=== PATIENT | female | born 1985 | race Caucasian/White ===

== ENCOUNTER → 2016-11-03 | Outpatient (CLI) | payer BC ==
[~2016-11-03] MED LIST: AMT10 PO; ETONMIS VAGRING; GABA-112 PO; METH500T37 PO; NYSTCRE32 TOP; ONDA4TAB4 PO; OXYC-57 PO; SUMA25TA PO; ZNTT/150 PO
== END | disposition home or self-care (01) ==
LOC: C.PAPS 10:50
PROVIDERS: ATTEND Obstetrics & Gynecology
DX: Z01.411 Encounter for gynecological examination (general) (routine) with abnormal findings (principal); R87.616 Satisfactory cervical smear but lacking transformation zone; Z87.42 Personal history of other diseases of the female genital tract

== ENCOUNTER 2017-02-21 14:48 | Emergency (ER) | payer BC ==
[~2017-02-21] VITALS: Ht 152.4 cm; Wt 100.0 kg
[~2017-02-21 14:48] MED LIST changes: -GABA-112 PO; -OXYC-57 PO
[2017-02-21 15:03] VITALS: TEMP 36.9; Ht 152.4 cm; Wt 100.0 kg
[2017-02-21] MEDS ORDERED: OXYCODONE/ACETAMINOPHEN 5-325 TAB PO STA (15:38)
[2017-02-21] MEDS ORDERED: GABA-112 PO (15:42)
--- NOTE | 2017-02-21 16:12 | DIAGNOSTIC IMAGING REPORT ---
PELVIS/UNILATERAL HIP 1 VIEW CLINICAL HISTORY: AP PELVIS, RIGHT HIP PAIN COMPARISON: None. DISCUSSION: The bones and joint spaces appear intact. There is no evidence of fracture, dislocation or bony disease. There is no evidence for soft tissue swelling. IMPRESSION: Negative study. The above report was generated using voice recognition software. It may contain grammatical, syntax or spelling errors. Electronically signed by: Moi Zambrnao M.D. 02/21/2017 4:10 PM Dictated Date/Time: 02/21/2017 4:09 PM
--- NOTE | 2017-02-21 16:13 | DIAGNOSTIC IMAGING REPORT ---
L-SPINE MIN 4 VIEWS ROUTINE HISTORY: Pain. Neuropathy. RIGHT HIP Pin, numbness/tingling right leg COMPARISON: None. FINDINGS: There is no fracture. No subluxation. Disc spaces are preserved. IMPRESSION: No fracture or subluxation within the lumbar spine. The above report was generated using voice recognition software. It may contain grammatical, syntax or spelling errors. Electronically signed by: Moi Zambrano M.D. 02/21/2017 4:11 PM Dictated Date/Time: 02/21/2017 4:10 PM
[2017-02-21] MEDS ORDERED: OXYC-57 PO (16:24)
--- NOTE | 2017-02-21 16:25 | EMERGENCY ROOM VISIT NOTE ---
ED Visit Note First contact with patient: 15:08 CHIEF COMPLAINT: Right hip pain radiating down the right leg since last evening HISTORY OF PRESENT ILLNESS: Patient is a 32-year-old white female who presents emergency department for evaluation of right hip pain. She states that her pain began acutely last evening. She was sleeping in a chair, and states that she moved/stretched, and fell acute onset of pain in the right hip. She went back to sleep. She states that when she woke up later and tried to get out of the chair and into bed, and she could not walk due to pain. She complains complains of pain in the anterior aspect of the right hip/groin, wrapping around to her buttocks, and down through her thigh, on occasion when it is more severe it radiates down to her heel. She also reports feeling a pins and needle sensation in the lateral aspect of the right leg. She describes her pain as throbbing in nature and rates it an 8/10. She tried taking ibuprofen without relief. She denies any fall or direct trauma to the area, no unusual activity prior to the onset of her pain. She does have a history of bilateral hip arthroscopy, the right hip was performed in April 2014. She does have crutches at home that she did not use them. She has an appointment with orthopedics tomorrow but due to her pain level did not feel that she could wait to be seen. She denies any symptoms in the left leg. She does have a history of back problems, but states that this pain feels more consistent with her prior hip disease. She denies any leg weakness. No saddle anesthesias. No bowel incontinence, she does report some element of chronic urinary incontinence which is normal for her. REVIEW OF SYSTEMS: Review of systems as per HPI. All other systems reviewed were negative. 10 systems reviewed. PMH: Electronic medical records are reviewed and summarized as above/below. See Problem List. SOCIAL HISTORY: Patient lives at home with her and son. She does not smoke. She is employed as a medical secretary receptionist. PHYSICAL EXAM: Vital Signs: Reviewed Nurse's notes. CONSTITUTIONAL: Patient is an obese 32 year-old white female who is awake and alert and in moderate distress due to her hip pain. There is significant discomfort with position changes. INTEGUMENTARY: No lesions or rash, normal skin turgor. LYMPH: No lymphadenopathy. SPINE: Examination of the patient's back does not demonstrate any ecchymosis, abrasions or outward signs of trauma. No erythema, increased warmth or induration. Patient has no discomfort to palpation over the lumbar spine, she does have some discomfort in the right SI joint and in the sciatic notch. EXTREMITIES: Leg lengths are symmetrical. Negative logroll bilaterally. Normal strength including dorsi-flexion and plantar flexion of the great toes and ankles and flexion and extension of the knees and flexion of the hips. The patient has pain with any right hip range of motion including flexion and internal and external rotation. Left hip is nontender. Straight leg raise testing does not elicit any radicular symptoms. Lower extremity DTRs are equal and symmetrical bilaterally. Distal pulses are easily palpable. Sensation light touch is intact over the lower extremities bilaterally. EMERGENCY DEPARTMENT COURSE: Patient was given 2 Percocet tablets orally. Lumbar spine and AP pelvis and right hip x-rays were obtained, and all were unremarkable. The patient feels that her pain is related to her hip, and is concerned she could have reaggravated her prior injury for which she underwent arthroscopic surgery several years ago. She is scheduled to see orthopedics tomorrow. She has crutches at home and was encouraged to use them . She was given a small perception for Percocet to use until she can be seen by orthopedics. Differential diagnoses entertained included bursitis, sprain, lumbar radiculopathy, among others. The patient was discharged home with her driving. She rated her pain a 5/10 at discharge. Medication reconciliation: I attest that I have personally reviewed the patient' s current medication list. Patient was reviewed in the [facility] Prescription Drug Monitoring Program, and there were no red flags noted. Blood pressure screening : Patient was found to have normal blood pressure on screening and does not require follow-up. L-SPINE MIN 4 VIEWS ROUTINE HISTORY: Pain. Neuropathy. RIGHT HIP Pin, numbness/tingling right leg COMPARISON: None. FINDINGS: There is no fracture. No subluxation. Disc spaces are preserved. IMPRESSION: No fracture or subluxation within the lumbar spine. PELVIS/UNILATERAL HIP 1 VIEW CLINICAL HISTORY: AP PELVIS, RIGHT HIP PAIN COMPARISON: None. DISCUSSION: The bones and joint spaces appear intact. There is no evidence of fracture, dislocation or bony disease. There is no evidence for soft tissue swelling. IMPRESSION: Negative study. 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 (3) Esophageal Reflux Status: Chronic (4) Gestational diabetes mellitus in childbirth, diet controlled Status: Resolved (5) Normal labor Status: Resolved Surgical Problems: (1) History of carpal tunnel release Status: Resolved (2) History of tonsillectomy Status: Resolved (3) History of wisdom tooth extraction Status: Resolved (4) Status post arthroscopy of hip Status: Resolved Current/Historical Medications Scheduled Etonogestrel/Ethinyl Estradiol (Nuvaring), 1 EA VAGRING MONTHLY Gabapentin (Neurontin), 200 MG PO HS Ranitidine (Zantac), 150 MG PO DAILY Scheduled PRN Methocarbamol (Robaxin), 500 MG PO TID PRN for Pain Ondansetron Tab (Zofran), 4 MG PO TID PRN for Nausea Oxycodone/Acetaminophen 5MG/325MG (Percocet 5MG/325MG), 1-2 TABS PO Q4 PRN for Pain Sumatriptan Succinate (Imitrex), 25 MG PO PRN PRN for Migraine Allergies Coded Allergies: Adhesives (Verified Allergy, Unknown, RASH, 02/21/17) Ketoconazole (Unverified Allergy, Unknown, RASH, 02/21/17) Vital Signs Date Time Temp Pulse Resp B/P (MAP) Pulse Ox O2 Delivery O2 Flow Rate FiO2 02/21/17 16:39 90 18 128/88 97 Room Air 02/21/17 15:03 36.9 90 18 127/84 97 Medications Administered Medications (Trade) Dose Ordered Sig/Elizabeth Route Start Time Stop Time Status Last Admin Dose Admin Oxycodone/ Acetaminophen (Percocet 5-325mg Tab) 2 tab NOW STAT PO 02/21/17 15:38 02/21/17 15:40 DC 02/21/17 15:47 2 TAB Departure Information Impression Primary Impression: Right hip pain Additional Impression: Right leg paresthesias Prescriptions Oxycodone/Acetaminophen 5MG/325MG (PERCOCET 5MG/325MG) Tab 1-2 TABS PO Q4 Y for Pain, #20 TAB For Initial Treatment Prov: Gaby Quach PA 02/21/17 Referrals Slim Reed M.D. (PCP) Patient Instructions My [facility] Additional Instructions DO NOT drive, drink alcohol, operate machinery, or perform dangerous activities today. You were given medications in the ER that can affect your ability to safely function or operate a vehicle. Percocet 5/325 mg : Take 1-2 pills every four hours for breakthrough pain. Avoid alcohol, operating machinery or dangerous equipment, working on ladders or roofs, DRIVING, or situations where being under the influence may be dangerous. It is recommended to use an kfle-guw-tqmniaw stool softener such as Colace, 100mg twice daily while taking this medication to avoid constipation. Ibuprofen(Motrin, Advil) may be used for fever or pain. Use 600mg every six hours as needed. Take with food. Avoid using more than 2400mg in a 24 hour period. Do not use 2400mg per day for more than three consecutive days without physician direction. Prolonged inappropriate use can lead to stomach upset or ulcers. This medication can be taken if you need to drive, work, or perform activities which may be dangerous when taking narcotic pain medication. Ice compresses for 20 minutes at a time four times daily for 2-3 days. Use the crutches as instructed. Rest and elevate your injury. Continue current medications. Follow-up with orthopedics as you have scheduled tomorrow. Problem Qualifiers
[2017-02-21 16:39] VITALS: BP 128/88; PULSE 90; O2SAT 97
== END 2017-02-21 16:41 | disposition home or self-care (01) ==
LOC: C.EDB 14:49 → C.EDD 16:41
DX: M25.551 Pain in right hip (principal); R20.2 Paresthesia of skin; R32 Unspecified urinary incontinence; E66.9 Obesity, unspecified; Z68.41 Body mass index [BMI] 40.0-44.9, adult; G62.9 Polyneuropathy, unspecified; F41.9 Anxiety disorder, unspecified; Q79.6 Ehlers-Danlos syndromes; K21.9 Gastro-esophageal reflux disease without esophagitis; Z79.3 Long term (current) use of hormonal contraceptives; Z79.899 Other long term (current) drug therapy

== ENCOUNTER → 2017-04-27 | Outpatient (CLI) | payer BC ==
[~2017-04-27] MED LIST changes: -AMT10 PO; +GABA-112 PO; -NYSTCRE32 TOP; +OXYC-57 PO
--- NOTE | 2017-04-27 15:57 | DIAGNOSTIC IMAGING REPORT ---
MRI LUMBAR SPINE W/O CONTRAST CLINICAL HISTORY: RADICULOPATHY TECHNIQUE: Sagittal and axial T1, T2 and STIR images were obtained. COMPARISON STUDY: 06/11/2015 OBSERVATIONS: The vertebral bodies and posterior elements appear intact. There is no abnormal bony signal present to suggest a marrow replacement process. L1-2: No disc protrusions or extrusions. No evidence of spinal canal or neural foraminal compromise. L2-3: No disc protrusions or extrusions. No evidence of spinal canal or neural foraminal compromise. L3-4: There is disc desiccation. There is no focal herniation. There is no spinal or foraminal stenosis. L4-5: No disc protrusions or extrusions. No evidence of spinal canal or neural foraminal compromise. L5-S1: No disc protrusions or extrusions. No evidence of spinal canal or neural foraminal compromise. The conus medullaris and cauda equina appear normal. IMPRESSION: Early disc desiccation at the L3-4 level. Otherwise normal examination. No disc herniations identified. No evidence of spinal or foraminal stenosis. Electronically signed by: Himanshu Valdez M.D. 04/27/2017 3:56 PM Dictated Date/Time: 04/27/2017 3:53 PM
== END | disposition home or self-care (01) ==
LOC: C.MRIBC 14:42
PROVIDERS: ATTEND Physical Medicine & Rehabilitation Sports Medicine
DX: M54.17 Radiculopathy, lumbosacral region (principal); M25.851 Other specified joint disorders, right hip

== ENCOUNTER 2017-08-13 22:27 | Emergency (ER) | payer BC, OTHER ==
[~2017-08-13] VITALS: Ht 152.4 cm; Wt 103.6 kg
[2017-08-13 22:40] VITALS: Ht 152.4 cm; Wt 103.6 kg
[2017-08-13] MEDS ORDERED: GABA-113 PO (23:10)
[2017-08-13] MEDS ORDERED: ACETAMINOPHEN 500 MG TAB PO STA (23:27)
[2017-08-13] MEDS ORDERED: KETOROLAC TROMETHAMINE 30 MG/ML VIAL IV STA (23:27)
[2017-08-13] MEDS ORDERED: ONDANSETRON INJ 2 MG/ML 2 ML VIAL IV STA (23:27)
[2017-08-13] MEDS ORDERED: SODIUM CHLORIDE 0.9% 1000ML 1,000 ML IV STA (23:27)
[2017-08-13 23:37] LABS: BASO % 0.4 %; BASO ABS # 0.03 K/uL (0-0.2); EOS % 0.3 %; EOS ABS # 0.02 K/uL (0-0.5); HEMATOCRIT 38.1 % (37-47); HEMOGLOBIN 13.1 g/dL (12.0-16.0); IG# 0.02 K/uL (0.00-0.02); LYMPH ABS # 0.35 K/uL (1.2-3.4); MEAN CELL VOLUME 91.1 fL (80-100); MEAN CORPUSCULAR HEMOGLOBIN 31.3 pg (25-34); MEAN CORPUSCULAR HGB CONC 34.4 g/dl (32-36); MEAN PLATELET VOLUME 10.3 fL (7.4-10.4); MONO % 7.9 %; MONO ABS # 0.56 K/uL (0.11-0.59); NEUT % 86.1 %; NEUT ABS # 6.09 K/uL (1.4-6.5); PLATELET COUNT 224 K/uL (130-400); RED CELL DISTRIBUTION WIDTH CV 13.1 % (11.5-14.5); RED CELL DISTRIBUTION WIDTH SD 43.3 fL (36.4-46.3); WHITE BLOOD COUNT 7.07 K/uL (4.8-10.8)
[2017-08-13 23:51] LABS: ALBUMIN 3.3 gm/dl (3.4-5.0); CALCIUM 9.5 mg/dl (8.5-10.1); TOTAL PROTEIN 7.8 gm/dl (6.4-8.2)
[2017-08-13 23:54] LABS: INFLUENZA B ANTIGEN Neg for Influ B (NEG)
[2017-08-14 00:49] VITALS: TEMP 37.4
[2017-08-14] MEDS ORDERED: SODIUM CHLORIDE 0.9% 1000ML 1,000 ML IV STA (00:49)
[2017-08-14] MEDS ORDERED: OSELTAMIVIR PHOSPHATE 75 MG CAP PO STA (01:33)
[2017-08-14] MEDS ORDERED: ONDANSETRON INJ 2 MG/ML 2 ML VIAL IV STA (01:33)
--- NOTE | 2017-08-14 01:43 | EMERGENCY ROOM VISIT NOTE ---
History First contact with patient: 22:55 Chief Complaint: FLU LIKE SX Stated Complaint: FEVER, VOMITING BLOOD,COUGHING,ACHE ALL OVER History of Present Illness The patient is a 32 year old female who presents to the Emergency Room with complaints of flulike symptoms which started yesterday evening and worsened throughout the day today. The patient reports that she has had body aches, nausea/vomiting, cough, headache, sore throat and fever. She rates her overall discomfort an 8/10. She has been taking Advil and NyQuil without relief. She reports fevers up to 103.2F. She does state that she had one episode of vomiting which was streaked with a small amount of dark material appearing to be blood. She states that one of her children was recently ill with croup, otherwise she denies any ill contacts. She denies neck stiffness, diarrhea, abdominal pain, chest pain or shortness of breath. Review of Systems A complete 10 point review of systems was reviewed with the patient with pertinent positives and negatives as per history of present illness. All else were negative. Past Medical/Surgical History Medical Problems: (1) Anxiety State Nos (2) Maurisio-Danlos syndrome type III (3) Esophageal Reflux (4) Gestational diabetes mellitus in childbirth, diet controlled (5) Normal labor Surgical Problems: (1) History of carpal tunnel release (2) History of tonsillectomy (3) History of wisdom tooth extraction (4) Status post arthroscopy of hip Social History Smoking Status: Never Smoker Alcohol Use: occasionally Marital Status: single Occupation Status: employed Current/Historical Medications Scheduled Etonogestrel/Ethinyl Estradiol (Nuvaring), 1 EA VAGRING MONTHLY Gabapentin (Neurontin), 300 MG PO TID Ondasetron Odt (Zofran Odt), 4 MG SL Q6H Oseltamivir (Tamiflu), 75 MG PO BID Ranitidine (Zantac), 150 MG PO DAILY Scheduled PRN Sumatriptan Succinate (Imitrex), 25 MG PO PRN PRN for Migraine Physical Exam Vital Signs Date Time Temp Pulse Resp B/P (MAP) Pulse Ox O2 Delivery O2 Flow Rate FiO2 08/14/17 02:12 89 18 131/64 96 Room Air 08/14/17 00:49 37.4 101 18 99/60 96 Room Air 08/13/17 22:40 39.4 104 18 143/76 93 Room Air Physical Exam VITALS: Vitals are noted on the nurse's note and reviewed by myself. Vital signs stable. GENERAL: This is a 32-year-old female, in no acute distress, nondiaphoretic, well-developed well-nourished. SKIN: The skin was without rashes. HEAD: Normocephalic atraumatic. EARS: External auditory canals clear, tympanic membranes pearly carias without erythema or effusion bilaterally. EYES: Pupils equal round and reactive to light and accommodation. MOUTH: Mucous membranes moist. Tonsils are not enlarged. Pharynx minimally erythematous. NECK: Supple without nuchal rigidity. No lymphadenopathy. HEART: Regular rate and rhythm without murmurs gallops or rubs. LUNGS: Clear to auscultation bilaterally without wheezes, rales or rhonchi. No retractions or accessory muscle use. ABDOMEN: Positive bowel sounds x 4. Soft, nontender to palpation. NEURO: Patient was alert and oriented to person place and time. Medical Decision & Procedures ER Provider Diagnostic Interpretation: CHEST 1 VIEW: No infiltrates, no acute cardiopulmonary abnormalities. Laboratory Results 08/13/17 23:15 Red Blood Count 4.18, Mean Corpuscular Volume 91.1, Mean Corpuscular Hemoglobin 31.3, Mean Corpuscular Hemoglobin Concent 34.4, Mean Platelet Volume 10.3, Neutrophils (%) (Auto) 86.1, Lymphocytes (%) (Auto) 5.0, Monocytes (%) (Auto) 7.9, Eosinophils (%) (Auto) 0.3, Basophils (%) (Auto) 0.4, Neutrophils # (Auto) 6.09, Lymphocytes # (Auto) 0.35, Monocytes # (Auto) 0.56, Eosinophils # (Auto) 0.02, Basophils # (Auto) 0.03 08/13/17 23:15 Test 08/13/17 23:15 White Blood Count 7.07 K/uL (4.8-10.8) Red Blood Count 4.18 M/uL (4.2-5.4) Hemoglobin 13.1 g/dL (12.0-16.0) Hematocrit 38.1 % (37-47) Mean Corpuscular Volume 91.1 fL (80-100) Mean Corpuscular Hemoglobin 31.3 pg (25-34) Mean Corpuscular Hemoglobin Concent 34.4 g/dl (32-36) Platelet Count 224 K/uL (130-400) Mean Platelet Volume 10.3 fL (7.4-10.4) Neutrophils (%) (Auto) 86.1 % Lymphocytes (%) (Auto) 5.0 % Monocytes (%) (Auto) 7.9 % Eosinophils (%) (Auto) 0.3 % Basophils (%) (Auto) 0.4 % Neutrophils # (Auto) 6.09 K/uL (1.4-6.5) Lymphocytes # (Auto) 0.35 K/uL (1.2-3.4) Monocytes # (Auto) 0.56 K/uL (0.11-0.59) Eosinophils # (Auto) 0.02 K/uL (0-0.5) Basophils # (Auto) 0.03 K/uL (0-0.2) RDW Standard Deviation 43.3 fL (36.4-46.3) RDW Coefficient of Variation 13.1 % (11.5-14.5) Immature Granulocyte % (Auto) 0.3 % Immature Granulocyte # (Auto) 0.02 K/uL (0.00-0.02) Anion Gap 10.0 mmol/L (3-11) Est Creatinine Clear Calc Drug Dose 89.3 ml/min Estimated GFR () 87.6 Estimated GFR (Non- 75.5 BUN/Creatinine Ratio 8.7 (10-20) Calcium Level 9.5 mg/dl (8.5-10.1) Total Bilirubin 0.5 mg/dl (0.2-1) Aspartate Amino Transf (AST/SGOT) U/L (15-37) Alanine Aminotransferase (ALT/SGPT) 38 U/L (12-78) Alkaline Phosphatase 75 U/L (45-117) Total Protein 7.8 gm/dl (6.4-8.2) Albumin 3.3 gm/dl (3.4-5.0) Globulin 4.5 gm/dl (2.5-4.0) Albumin/Globulin Ratio 0.7 (0.9-2) Influenza Type A Antigen Neg for Influ A (NEG) Influenza Type B Antigen Neg for Influ B (NEG) Medications Administered Medications (Trade) Dose Ordered Sig/Elizabeth Route Start Time Stop Time Status Last Admin Dose Admin Sodium Chloride 1,000 ml @ 999 mls/hr Q1H1M STAT IV 08/13/17 23:27 08/14/17 00:27 DC 08/13/17 23:36 999 MLS/HR Ondansetron HCl (Zofran Inj) 4 mg NOW STAT IV 08/13/17 23:27 08/13/17 23:29 DC 08/13/17 23:35 4 MG Ketorolac Tromethamine (Toradol Inj) 30 mg NOW STAT IV 08/13/17 23:27 08/13/17 23:29 DC 08/13/17 23:35 30 MG Acetaminophen (Tylenol Tab) 1,000 mg NOW STAT PO 08/13/17 23:27 08/13/17 23:29 DC 08/13/17 23:35 1,000 MG Sodium Chloride 1,000 ml @ 999 mls/hr Q1H1M STAT IV 08/14/17 00:49 08/14/17 01:49 DC 08/14/17 00:56 999 MLS/HR Ondansetron HCl (Zofran Inj) 4 mg NOW STAT IV 08/14/17 01:33 08/14/17 01:34 DC 08/14/17 01:40 4 MG Oseltamivir Phosphate (Tamiflu Cap) 75 mg NOW STAT PO 08/14/17 01:33 08/14/17 01:34 DC 08/14/17 01:41 75 MG Ondansetron HCl (ZOFRAN ODT 4MG Home Pack) 1 homepack UD ONCE PO 08/14/17 01:45 08/14/17 01:46 DC 08/14/17 01:41 1 HOMEPACK Medical Decision Differential diagnosis includes influenza, pneumonia, upper respiratory infection, strep or otitis, mononucleosis, meningitis, among others. The patient is a 32-year-old female who presents today complaining of flulike symptoms. Labs revealed no leukocytosis, anemia or concerning electrolyte abnormality. Chest x-ray showed no pulmonary infiltrates. Patient was initially tachycardic and febrile, however this improved after treatment with Tylenol, fluids and Toradol. Her rapid flu testing was negative, however with symptoms very suggestive of the flu I did offer her treatment with Tamiflu which she accepted. She felt much better after receiving the above treatment. Conservative measures were discussed with the patient. She will follow up with her PCP. Based on the patient's presentation and work up, I feel the patient is stable for outpatient treatment. The patient was educated to return to the emergency department for any worsening of their current condition or new/concerning symptoms. She will follow up with primary care. Medication Reconcilliation Current Medication List: was personally reviewed by me Blood Pressure Screening Patient's blood pressure: Normal blood pressure Impression Primary Impression: Influenza-like symptoms Departure Information Dispostion Home / Self-Care Condition GOOD Prescriptions Ondasetron Odt (ZOFRAN ODT) 4 Mg Tab 4 MG SL Q6H for Nausea, #15 TAB Prov: Tiffanie Hutton .AVELINA 08/14/17 Oseltamivir (Tamiflu) 75 Mg Cap 75 MG PO BID for 5 Days, #9 CAP Prov: Tiffanie Hutton PA-C 08/14/17 Referrals Slim Reed M.D. (PCP) Patient Instructions My [facility] Additional Instructions Tamiflu as prescribed, twice daily for 5 days. For pain/fever control, you can use the following [id number] medicines ( if >12 yo): - Extra strength (500 mg/tab) Tylenol (acetaminophen) 2 tabs every 6 hours as needed. Do not exceed 12 tablets in a 24 hour period. Avoid taking more than 4 grams (4000 mg) of Tylenol per day. This includes any other sources of acetaminophen you may take on a regular basis. - Regular strength (200 mg/tab) Advil (ibuprofen) 3-4 tabs every 6 hours as needed. Do not exceed a dose of 3200 mg per day. You may alternate these medications for better fever control. For example, if you take Tylenol at noon, take ibuprofen at 3 PM, Tylenol at 6 PM, ibuprofen and 9 PM, etc. You have been prescribed Zofran to be used for any nausea or vomiting. Take as prescribed. Rest and be sure to drink plenty of fluids. As with any visit to the emergency Department, you should follow-up with your primary care provider. Return to the emergency department with any worsening symptoms, large amounts of blood in your vomit, lightheadedness/passing out, inability to keep any liquids down, increased neck pain/stiffness, or any other new/concerning symptoms.
[2017-08-14] MEDS ORDERED: ONDANSETRON HOME PACK 4MG OD TAB PO ONE (01:45)
[2017-08-14] MEDS ORDERED: ONDA4TAB10 SL (01:54)
[2017-08-14] MEDS ORDERED: OSEL75CA12 PO (01:54)
[2017-08-14 02:12] VITALS: BP 131/64; PULSE 89; O2SAT 96
--- NOTE | 2017-08-14 08:32 | DIAGNOSTIC IMAGING REPORT ---
CHEST ONE VIEW PORTABLE CLINICAL HISTORY: Cough. Fever. COMPARISON STUDY: No previous studies for comparison. FINDINGS: Lung volumes are at the lower limits of normal. No consolidation is identified. Pulmonary vascularity is normal. Cardiac size is normal. Mediastinal contours are normal. There is no pneumothorax or pleural effusion. IMPRESSION: No acute cardiopulmonary findings. Electronically signed by: Link Narayan M.D. 08/14/2017 8:30 AM Dictated Date/Time: 08/14/2017 8:30 AM
== END 2017-08-14 02:41 | disposition home or self-care (01) ==
LOC: C.EDB 22:29 → C.EDC 08-14 02:41
DX: R51 Headache (principal); R05 Cough; R07.0 Pain in throat; R50.9 Fever, unspecified; K21.9 Gastro-esophageal reflux disease without esophagitis; Z97.5 Presence of (intrauterine) contraceptive device

== ENCOUNTER → 2017-10-20 | Outpatient (CLI) | payer BC, OTHER ==
[~2017-10-20] MED LIST changes: -GABA-112 PO; +GABA-113 PO; -METH500T37 PO; +ONDA4TAB10 SL; -ONDA4TAB4 PO; -OXYC-57 PO; +RANI150T85 PO; -ZNTT/150 PO
== END | disposition home or self-care (01) ==
LOC: C.FOODA 13:39
PROVIDERS: ATTEND Nurse Practitioner Family
DX: E66.01 Morbid (severe) obesity due to excess calories (principal); M25.50 Pain in unspecified joint; Q79.6 Ehlers-Danlos syndromes; R53.83 Other fatigue; K21.9 Gastro-esophageal reflux disease without esophagitis; E53.8 Deficiency of other specified B group vitamins; L40.9 Psoriasis, unspecified

== ENCOUNTER → 2017-12-01 | Outpatient (CLI) | payer BC, OTHER | END | disposition home or self-care (01) | LOC: C.FOODA 13:21 | PROVIDERS: ATTEND Nurse Practitioner Family | DX: E66.01 Morbid (severe) obesity due to excess calories (principal); M25.50 Pain in unspecified joint; Q79.6 Ehlers-Danlos syndromes; R53.83 Other fatigue; K21.9 Gastro-esophageal reflux disease without esophagitis; E53.8 Deficiency of other specified B group vitamins; L40.9 Psoriasis, unspecified ==

== ENCOUNTER → 2017-12-07 | Outpatient (CLI) | payer BC, OTHER ==
--- NOTE | 2017-12-07 16:30 | DIAGNOSTIC IMAGING REPORT ---
LEFT KNEE 2 VIEWS CLINICAL HISTORY: Hypermobility syndrome. FINDINGS: AP and lateral views of the left knee are obtained. No prior studies are available for comparison at the time of dictation. The skeletal structures are well mineralized. No fracture is seen. The joint spaces of the knee are well-maintained. There is no joint effusion. The overlying soft tissues are within normal limits. IMPRESSION: Unremarkable radiographic assessment of the left knee. Electronically signed by: Sanjiv Torres M.D. 12/07/2017 4:29 PM Dictated Date/Time: 12/07/2017 4:28 PM
--- NOTE | 2017-12-07 16:31 | DIAGNOSTIC IMAGING REPORT ---
RIGHT KNEE 2 VIEWS CLINICAL HISTORY: Hypermobility syndrome. FINDINGS: AP and lateral views of the right knee are obtained. No prior studies are available for comparison at the time of dictation. The skeletal structures are well mineralized. No fracture is seen. The joint spaces of the knee are well-maintained. There is no joint effusion. The overlying soft tissues are within normal limits. IMPRESSION: Unremarkable radiographic assessment of the right knee. Electronically signed by: Sanjiv Torres M.D. 12/07/2017 4:30 PM Dictated Date/Time: 12/07/2017 4:29 PM
== END | disposition home or self-care (01) ==
LOC: C.RAD1850 15:53
PROVIDERS: ATTEND Internal Medicine Rheumatology
DX: L40.9 Psoriasis, unspecified (principal); M25.569 Pain in unspecified knee; M35.7 Hypermobility syndrome

== ENCOUNTER 2024-04-16 13:57 | Inpatient (IN) ==
[2024-04-16 14:32] LABS: Basophils # (auto) 0.08 K/uL (0.00-0.20); Basophils % (auto) 0.9 %; Eosinophils # (auto) 0.11 K/uL (0.00-0.50); Eosinophils % (auto) 1.3 %; Hematocrit (blood only) 39.6 % (37.0-47.0); Hemoglobin 13.4 g/dl (12.0-16.0); Immature Granulocytes # (auto) 0.03 K/uL (0.01-0.20); Immature Granulocytes % (auto) 0.4 %; Lymphocytes # (auto) 2.34 K/uL (1.20-3.40); Lymphocytes % (auto) 27.6 %; Mean Corpuscular Hemoglobin 29.9 pg (25.0-34.0); Mean Corpuscular Hgb Conc 33.8 g/dL (32.0-36.0); Mean Corpuscular Volume 88.4 fL (80.0-100.0); Mean Platelet Volume 10.1 fL (9.4-12.4); Monocytes # (auto) 0.64 K/uL (0.11-0.59); Monocytes % (auto) 7.5 %; Neutrophils # (auto) 5.29 K/uL (1.40-6.50); Neutrophils % (auto) 62.3 %; Platelet Count 324 K/uL (130-400); RDW Standard Deviation 39.2 fL (36.4-46.3); Red Blood Count 4.48 M/uL (4.20-5.40); White Blood Count 8.49 K/ul (4.8-10.8)
[2024-04-16 14:40] LABS: Appearance Urine Turbid (Clear); Bacteria Urine Automated None Seen (None Seen); Bilirubin Urine Negative (Negative); Blood Urine Trace (Negative); Calcium Oxalate Crystals Urine Present (None Prsent); Cast Urine Automated >20 /lpf (0-2); Color Urine Yellow; Epithelial Cell Urine Auto >20 /hpf (0-2); Glucose Urine UA Negative (Negative); Hyaline Casts Urine Present /lpf (None Presnt); Ketones Urine 2+ (Negative); Leukocyte Esterase Urine Trace (Negative); Nitrite Urine Negative (Negative); Protein Urine 1+ (Negative); RBC Urine Automated 0-2 /hpf (0-2); Specific Gravity Urine 1.018 (1.000-1.030); Urobilinogen Urine Negative (Negative); White Blood Cell Casts Urine Present /lpf (None Prsent)
[2024-04-16 14:50] LABS: Albumin Globulin Ratio 1.5 (0.9-2); Albumin Level 4.6 gm/dl (3.4-5.0); BUN Creatinine Ratio 13.4 (10-20); Bilirubin,Total 0.7 mg/dl (0.2-1.0); Calcium 9.8 mg/dl (8.6-10.3); Creatinine Clr Calc Pharmacy 27.9 ml/min; Est GFR (African American) 32.7 ml/min; Est GFR (Non-African American) 28.2 ml/min; Globulin 3.1 gm/dl (2.5-4.0); Total Protein 7.7 gm/dl (6.0-8.3)
[2024-04-16] MEDS: SODIUM CHLORIDE 0.9% 1,000 ML IV SCH ×2 (15:33→16:25)
[2024-04-16 15:36] LABS: Pregnancy Test, Serum Negative (Negative)
[2024-04-16] MEDS: ONDANSETRON INJ 2 MG/ML 2 ML VIAL IV STA (16:16)
[2024-04-16] MEDS: D5W AND NSS 1,000 ML IV SCH (16:53)
--- NOTE | 2024-04-16 16:59 | CT Scan Report ---
CT OF THE ABDOMEN AND PELVIS WITHOUT CONTRAST CLINICAL HISTORY: Vomiting, abdominal pain, acute renal failure. COMPARISON STUDY: CT of the abdomen and pelvis November 24, 2022. TECHNIQUE: Axial images of the abdomen and pelvis were obtained without IV contrast. Images were revi ewed in the axial, sagittal, and coronal planes. Automated exposure control was utilized for the mary lou dy. A dose lowering technique was utilized adhering to the principles of ALARA. FINDINGS: Lung bases are unremarkable. There is no pneumatosis, free air or portal venous gas. No nicolas al, ureteral or bladder calculi are present. There is no hydronephrosis or hydroureter. Evaluation of the remainder of the abdomen and pelvis is suboptimal on this unenhanced exam. Liver, spleen, adrena l glands and pancreas are unremarkable. No biliary or pancreatic ductal dilatation. No peripancreatic or pericholecystic infiltration. The appendix is normal. There is no evidence for a bowel obstructio n. There is no lymphadenopathy. No fluid collections. Pelvic calcifications represent phleboliths. Bi lateral psoas atrophy is again noted. IMPRESSION: 1. No urinary calculi or hydronephrosis. 2. No acute process within the abdomen or pelvis on unenhanced exam. 3. Normal appendix. No bowel obstruction. ACT 112: Negative or not required by law. Electronically signed by: Link Narayan M.D. 04/16/2024 4:57 PM
--- NOTE | 2024-04-16 17:31 | History & Physical Report ---
Date of Service April 16, 2024 Assessment & Plan (1) Gastroparesis: Plan: Presents with 5 days of progressive nausea and vomiting, saw her GI provider 04/12 and was started on Reglan without relief. no specific home regiment but takes omeprazole and Amitiza from GI standpoint. Dx with gastric emptying study 02/2023. CTAP: no acute process, no kidney stone. Gallbladder unremarkable. Possibly related to recent increase in Ozempic. - PPI converted to IV until can take PO reliably - Continue IVF with D5/LR x2L - clear liquid diet, advance as tolerated - prn Reglan PO, prn zofran IV (QTc okay) (2) Acute kidney injury: Plan: Cr 2.17 on admission, baseline 0.60 -no stone on CT, suspect related to volume contraction - continue IVF - hold lisinopril, metformin - UC pending, without UTI symptoms, abx deferred on admission AM BMP (3) Diabetes: Plan: Home regiment - Metformin 1000mg BID, semaglutide, lisinopril --> HELD Last A1c at goal, 5%. Hypoglycemic on arrival. BSG ACHS SSI - CF only Plan Chronic stable medical conditons: * Family planning - continue Nuva Ring Dispo: admit to medical Dvt proh: low risk, encourage ambulation Code status: Full History of Present Illness Primary Care Provider: Daina Brown MD Alicia is a 39F with a PMH of Diabetes, gastroparesis and Maurisio Danlos syndrome who presents to the ED with concerns of nausea and vomiting. States she over the last week she was having more heartburn feelings and that prompted her to make an appointment with her GI provider, Charmaine Osborn. Coincidently, the day of the appointment was the day she started vomiting. She was given Reglan and took this but is still vomiting, last vomited around 1230 this afternoon. No hematemesis. No infectious symptoms or fever. No urinary symptoms. ED Course: NSS x1L Zofran 4mg D5/NSS Allergies Allergy/AdvReac Type Severity Reaction Status Date / Time adhesive Allergy Mild RASH Verified 02/29/24 09:12 ketoconazole Allergy Unknown Verified 02/29/24 09:12 Home Medications Medication Instructions Recorded Confirmed Type omeprazole 40 mg capsule,delayed 40 mg PO HS 02/22/19 02/29/24 History release clotrimazole-betamethasone 1 1 applic topical WK 11/24/22 02/29/24 History %-0.05 % topical cream etonogestrel 0.12 mg-ethinyl 1 vag ring vaginal UD 11/24/22 02/29/24 History estradiol 0.015 mg/24 hr vaginal ring ([place]) blood sugar diagnostic (OneTouch #10 ea 11/03/23 02/29/24 History Verio test strips) blood-glucose meter (OneTouch #1 ea 11/03/23 02/29/24 History Verio Reflect Meter) blood-glucose meter,continuous #1 ea 11/03/23 02/29/24 History (Dexcom G7 Regulatory Affairs Assistant) blood-glucose sensor (Dexcom G7 #1 ea 11/03/23 02/29/24 History Sensor device) lancets 30 gauge (OneTouch Delica #100 ea 11/03/23 02/29/24 History Plus Lancet) semaglutide 1 mg/dose (4 mg/3 mL) mg subcut 11/03/23 02/29/24 History subcutaneous pen injector (Ozempic) cholecalciferol (vitamin D3) 50 50 mcg PO DAILY 02/29/24 02/29/24 History mcg (2,000 unit) capsule diclofenac sodium 75 mg 75 mg PO DAILY PRN 02/29/24 02/29/24 History tablet,delayed release metformin 1,000 mg tablet 1,000 mg PO BID 02/29/24 02/29/24 History sdcwmbtxfapi-Nb-lldr-minerals 18 1 tab PO DAILY 02/29/24 02/29/24 History mg-0.4 mg tablet vitamin B complex 1 tab PO DAILY 02/29/24 02/29/24 History Past Med/Surg History Problem List (Updated 04/16/24 @ 17:41 by Cabrera Rogers MD) Hypoglycemia (Acute) Diabetes mellitus with gastroparesis (Acute) Acute dehydration (Acute) Acute renal failure (Acute) Acute kidney injury ARIELLE positive EDS (Maurisio-Danlos syndrome) Low back pain Numbness and tingling of both legs below knees Encounter for pre-operative examination Medical History (Updated 04/16/24 @ 17:41 by Cabrera Rogers MD) Gastroparesis GERD (gastroesophageal reflux disease) Diabetes Mild cervical dysplasia Degenerative disc disease LUMBAR Hiatal hernia Migraine Cardiac murmur DURING (NO CURRENT PROBLEMS) Surgical History (Updated 02/29/24 @ 12:53 by Stanislav Ruano DO) History of carpal tunnel surgery History of hip surgery History of tonsillectomy Nausea and vomiting after administration of anesthetic agent History of colposcopy History of carpal tunnel release RT History of arthroscopy RT/LEFT HIP History of esophagogastroduodenoscopy (EGD) History of colonoscopy History of tooth extraction History of tonsillectomy and adenoidectomy Family History Father Family history of diabetes mellitus Grandmother (Paternal) Family history of diabetes mellitus Sister Club foot Grandmother (Maternal) Thyroid disorder Other Down syndrome Myocardial infarction Ovarian cancer Stroke Social History Smoking Status: Never smoker Second Hand Exposure: No; Do You Dip or Chew Tobacco: No; Hx Alcohol Use: No Hx Substance Use: No Preferred Language: Faroese Communication Ability: Effective 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 Beliefs That Will Affect Care: None Current Living Situation: Spouse Feels Safe at Home: Yes Assistive Devices: Glasses Review of Systems Review of Systems: All systems reviewed & are unremarkable except as noted in Subjective Physical Exam Physical Exam: General: NAD, VS as above, pleasant appears sick and fatigue HEENT: MM dry Resp: normal respiratory effort, lungs clear to auscultation CV: RRR, no murmur, Abd: normal bowel sounds, soft non tender Extremities: Moves all extremities, no edema Neuro: A&O x3, Skin: intact, no lesions noted Results & Data Results & Data Vital Signs (Past 12 Hours) Vital Signs Temp Pulse Pulse Resp BP BP Pulse Ox 04/16/24 16:00 79 18 131/70 99 04/16/24 15:31 76 04/16/24 14:10 82 20 131/70 98 04/16/24 14:00 97.9 F 93 H 18 119/80 99 O2 Del Method 04/16/24 16:00 Room Air 04/16/24 15:31 04/16/24 14:10 Room Air 04/16/24 14:00 Room Air Laboratory Results CBC, chemsitry, and UA reviewed Diagnostic Findings CT A/P reviewed Supervising Physician Co-Signing Physician Notes Patient seen and examined, chart reviewed, case discussed with Hansa Abdullahi PA-C and I agree with the assessment and plan as above except as otherwise noted Labs and images reviewed 39yo F with a PMHx of gatroparesis, ARIELLE positive, Maurisio-Danlos, and diabetes who presents for ~1 week of worsening stomach discomfort and vomiting x5 days. She has a history of gastroparesis suspected diabetic. Follows with [facility] Charmaine Osborn gastroenterology. Creatinine is normal, on admission she is found to have an elevation of creatinine at 2.17. She seen at the bedside. She reports shortly before her nausea started she had increased her semaglutide 1 mg per dose up to 2 mg per dose. Her initial episode and nausea started shortly after this. She is aware of the risk of worsening her diabetic gastroparesis with this however has had diabetes which responded well so is hopeful to continue it. Her gastroparesis did precede this and she has had a gastric emptying study in the past. She feels that Reglan helps a little bit, Zofran has helped her nausea a lot. Abdomen is nontender, although palpation of the epigastrium does induce some nausea. She appears volume contracted. She is not hypotensive or tachycardic, heart rate is regular at the bedside. Gastroparesis, acute on chronic - Confirmed on prior gastric emptying study Last EGD 2018 with normal stomach/duodenum. Small hiatal hernia noted. Several days of nausea/vomiting CTA/P: No acute process within the abdomen or pelvics. Normal appendix. No urinary calculi or hydronephrosis was noted. Patient is with ELIZABETH/ARF Nausea control with Zofran/Reglan. History of type II DM Last A1c at goal, 5%. Patient had discontinued glipizide at last PCP follow-up in January. Had been continued on Ozempic and metformin at that time. Ozempic likely to contribute to gastroparesis and delayed gastric emptying. Given this and her symptoms will hold this. Urine with white blood cell casts, is with epithelial cell contamination. No urinary symptoms. No fever. No leukocytosis. Abx deferred Agree w/ above PG Care Time/CCT Total # of Minutes Spent Total Time Spent with Patient: Total time spent is greater than 50% in coordination of care (as documented) at patient's floor/unit and/or counseling patient: Coding Level of Care Code 01971 INT INP/OBS CARE MIN Diagnoses Gastroparesis K31.84 Acute kidney injury N17.9 Diabetes E11.9
--- NOTE | 2024-04-16 17:41 | Emergency Department Note ---
Impression & Plan Acute renal failure, Acute dehydration, Diabetes mellitus with gastroparesis, Hypoglycemia ED Provider Note NAME: TAMMY FERRARO AGE: 39 SEX: Female INFORMANT: Patient ED PROVIDER(S): Cabrera Rogers MD CHIEF COMPLAINT: nausea PLAN: Disposition: Admitted Outpatient prescription management: none Referral: None MEDICAL DECISION MAKING: Patient presented because of intractable nausea and vomiting. Clinically she looks dehydrated. Patient had laboratory testing done. She was hydrated and treated with Zofran. Patient denied any pain. CT imaging did not reveal any acute findings. CBC was unremarkable however patient's chemistry panel revealed signs of dehydration along with acute renal failure. Patient also had hypoglycemia. This was verified by bedside glucose check. Patient had her normal saline hydration changed to D5 normal saline. She will need admission to the hospital. Consultation was made with Dr. Jake Patricia of the [facility] service. Patient was evaluated in the ER for further management. Care/management discussed with: bingo manager Level of care consideration(s): After review of the information above and other included data, I feel the patient requires escalation of care to admission Triage Nursing notes: reviewed and agree them. Vital Signs: reviewed and remarkable for no significant abnormalities Additional History obtained from: none Chronic Medical/Social Conditions affecting care: Diabetes Prior/ Outside/ External records reviewed: none Differential Diagnosis: Etiologies such as dehydration, hyper/hypoglycemia, complications of gastroparesis, gastroenteritis, food borne illness, infections, appendicitis, diverticulitis, inflammatory bowel disease, GI bleed, biliary pathology, as well as others were entertained. Diagnostics, independently interpreted by me: ECG: none Cardiac Monitoring: Cardiac monitoring ordered by me: The patient was placed on continuous cardiac monitoring and observed. It revealed a normal sinus rhythm at 79 beats per minute without ectopy or evidence of dysrhythmia. Medical decision rules: none Imaging studies: CT imaging of the abdomen pelvis negative for obstruction, perforation or other acute process. I refer you to the EMR for further details. HPI: 39 year old Female arrives for evaluation of nausea and vomiting. This started 5 days ago and is persisting. The patient also notes the following associated symptoms, chills. The patient has been prescribed Reglan unsuccessfully for relieving factors. Current pain is rated as 0/10. Pt denies LOC, headache, fevers, diaphoresis, visual changes, neck pain, chest pain, breathing difficulties, abdominal pain, back pain, melena, hematochezia, urinary symptoms, numbness, weakness, lymphadenopathy, rash, or other complaints.. PAST MEDICAL HISTORY: See Below, diabetes PAST SURGICAL HISTORY: See Below, SOCIAL HISTORY: See Below, non-smoker HOME MEDICATIONS: See Below ALLERGIES: See Below VITALS: See Below PHYSICAL EXAMINATION: GENERAL: Awake, alert, mildly ill-appearing, in no distress HENT: Normocephalic, atraumatic. Oropharynx with dry mucous membranes. EYES: Normal conjunctiva. Sclera non-icteric. NECK: Inspection normal. Non-tender. Supple. No nuchal rigidity. FROM. No masses. RESPIRATORY: Clear to auscultation. No wheezes. No rales. Normal respiratory effort. CARDIAC: Normal rate. Normal rhythm. No murmurs. No rubs. Extremities warm and well perfused. Pulses equal. No JVD. GI: Soft, non-distended. No tenderness to palpation. No rebound or guarding. No masses. RECTAL: Deferred. MUSCULOSKELETAL: Atraumatic. Chest examination reveals no tenderness. The back is symmetrical on inspection without obvious abnormality. There is no CVA tenderness to palpation. No joint edema. LOWER EXTREMITIES: Calves are non-tender. No edema. No discoloration. NEURO: Normal sensorium. No sensory or motor deficits noted. SKIN: No rash or jaundice noted. PROCEDURES: none CRITICAL CARE: none OBSERVATION NOTE: none Past Med/Surg History Problem List (Updated 04/16/24 @ 17:41 by Cabrera Rogers MD) Hypoglycemia (Acute) Diabetes mellitus with gastroparesis (Acute) Acute dehydration (Acute) Acute renal failure (Acute) Acute kidney injury ARIELLE positive EDS (Maurisio-Danlos syndrome) Low back pain Numbness and tingling of both legs below knees Encounter for pre-operative examination Medical History (Updated 04/16/24 @ 17:41 by Cabrera Rogers MD) Gastroparesis GERD (gastroesophageal reflux disease) Diabetes Mild cervical dysplasia Degenerative disc disease LUMBAR Hiatal hernia Migraine Cardiac murmur DURING (NO CURRENT PROBLEMS) Surgical History (Updated 02/29/24 @ 12:53 by Stanislav Ruano DO) History of carpal tunnel surgery History of hip surgery History of tonsillectomy Nausea and vomiting after administration of anesthetic agent History of colposcopy History of carpal tunnel release RT History of arthroscopy RT/LEFT HIP History of esophagogastroduodenoscopy (EGD) History of colonoscopy History of tooth extraction History of tonsillectomy and adenoidectomy Family History Father Family history of diabetes mellitus Grandmother (Paternal) Family history of diabetes mellitus Sister Club foot Grandmother (Maternal) Thyroid disorder Other Down syndrome Myocardial infarction Ovarian cancer Stroke Social History Smoking Status: Never smoker Second Hand Exposure: No; Do You Dip or Chew Tobacco: No; Hx Alcohol Use: No Hx Substance Use: No Preferred Language: Sri Lankan Communication Ability: Effective 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 Beliefs That Will Affect Care: None Current Living Situation: Spouse Feels Safe at Home: Yes Assistive Devices: Glasses Allergies Allergies Allergy/AdvReac Type Severity Reaction Status Date / Time adhesive Allergy Mild RASH Verified 02/29/24 09:12 ketoconazole Allergy Unknown Verified 02/29/24 09:12 Home Meds Home Medications Medication Instructions Recorded Confirmed omeprazole 40 mg capsule,delayed 40 mg PO HS 02/22/19 02/29/24 release clotrimazole-betamethasone 1 1 applic topical WK 11/24/22 02/29/24 %-0.05 % topical cream etonogestrel 0.12 mg-ethinyl 1 vag ring vaginal UD 11/24/22 02/29/24 estradiol 0.015 mg/24 hr vaginal ring (NoéuRy) blood sugar diagnostic (Bio-Adhesive AllianceTouch #10 ea 11/03/23 02/29/24 Verio test strips) blood-glucose meter (Bio-Adhesive AllianceTouch #1 ea 11/03/23 02/29/24 Verio Reflect Meter) blood-glucose meter,continuous #1 ea 11/03/23 02/29/24 (Dexcom G7 Primer Supervisor) blood-glucose sensor (Dexcom G7 #1 ea 11/03/23 02/29/24 Sensor device) lancets 30 gauge (Bio-Adhesive AllianceToeIQnetworks Delica #100 ea 11/03/23 02/29/24 Plus Lancet) semaglutide 1 mg/dose (4 mg/3 mL) mg subcut 11/03/23 02/29/24 subcutaneous pen injector (Ozempic) cholecalciferol (vitamin D3) 50 50 mcg PO DAILY 02/29/24 02/29/24 mcg (2,000 unit) capsule diclofenac sodium 75 mg 75 mg PO DAILY PRN 02/29/24 02/29/24 tablet,delayed release glipizide 10 mg tablet mg PO 02/29/24 02/29/24 metformin 1,000 mg tablet 1,000 mg PO BID 02/29/24 02/29/24 ozqxtucwyrbi-Xr-xwgb-minerals 18 1 tab PO DAILY 02/29/24 02/29/24 mg-0.4 mg tablet vitamin B complex 1 tab PO DAILY 02/29/24 02/29/24 Results & Data (ED) Vital Signs Vital Signs - 24 hr 04/16/24 14:00 04/16/24 14:10 04/16/24 15:31 Temperature 36.6 C Temperature Source Temporal Artery Scan Pulse Rate 93 H 76 Pulse Rate [Finger] 82 Pulse Rhythm Regular Pulse Strength Normal Respiratory Rate 18 20 Respiratory Effort / Characteristics Non-Labored Respiratory Depth Normal Respiratory Pattern Regular Blood Pressure 119/80 Blood Pressure [Right Arm] 131/70 Blood Pressure Mean 93 Blood Pressure Mean [Right Arm] 90 Blood Pressure Position Sitting Pulse Oximetry 99 98 Oxygen Delivery Method Room Air Room Air Sepsis Recent Fever Within 48 Hours No Sepsis New/Unexplained Change in Mental Status No Sepsis Action Taken by Nursing No Action Required 04/16/24 16:00 Temperature Temperature Source Pulse Rate Pulse Rate [Finger] 79 Pulse Rhythm Pulse Strength Respiratory Rate 18 Respiratory Effort / Characteristics Respiratory Depth Respiratory Pattern Blood Pressure Blood Pressure [Right Arm] 131/70 Blood Pressure Mean Blood Pressure Mean [Right Arm] 90 Blood Pressure Position Pulse Oximetry 99 Oxygen Delivery Method Room Air Sepsis Recent Fever Within 48 Hours Sepsis New/Unexplained Change in Mental Status Sepsis Action Taken by Nursing Laboratory Data 04/16/24 14:12 04/16/24 14:12 Lab Results 04/16/24 04/16/24 04/16/24 Range/Units 14:12 14:15 16:20 WBC 8.49 (4.8-10.8) K/ul RBC 4.48 (4.20-5.40) M/uL Hgb 13.4 (12.0-16.0) g/dl Hct 39.6 (37.0-47.0) % MCV 88.4 (80.0-100.0) fL MCH 29.9 (25.0-34.0) pg MCHC 33.8 (32.0-36.0) g/dL RDW Std Deviation 39.2 (36.4-46.3) fL RDW Coeff of Rodrigue 12.0 (11.5-14.5) % Plt Count 324 (130-400) K/uL MPV 10.1 (9.4-12.4) fL Immature Gran % (Auto) 0.4 % Neut % (Auto) 62.3 % Lymph % (Auto) 27.6 % [place] % (Auto) 7.5 % Eos % (Auto) 1.3 % Baso % (Auto) 0.9 % Neut # (Auto) 5.29 (1.40-6.50) K/uL Lymph # (Auto) 2.34 (1.20-3.40) K/uL [place] # (Auto) 0.64 H (0.11-0.59) K/uL Eos # (Auto) 0.11 (0.00-0.50) K/uL Baso # (Auto) 0.08 (0.00-0.20) K/uL Immature Gran # (Auto) 0.03 (0.01-0.20) K/uL Sodium 134 L (136-145) mmol/L Potassium 4.0 (3.5-5.1) mmol/L Chloride 97 L (98-107) mmol/L Carbon Dioxide 19 L (21-32) mmol/L Anion Gap 18 H (3-11) BUN 29 H (6-23) mg/dl Creatinine 2.17 H (0.6-1.2) mg/dl Est Cr Clr Drug Dosing 27.9 ml/min Est GFR ( Amer) 32.7 ml/min Est GFR (Non-Af Amer) 28.2 ml/min BUN/Creatinine Ratio 13.4 (10-20) Glucose 66 L (70-99(Fasting)) mg/dl POC Glucose 56 L* (70-99) mg/dl Calcium 9.8 (8.6-10.3) mg/dl Total Bilirubin 0.7 (0.2-1.0) mg/dl AST 12 L (13-39) U/L ALT 12 (7-52) U/L Alkaline Phosphatase 53 (34-104) U/L Total Protein 7.7 (6.0-8.3) gm/dl Albumin 4.6 (3.4-5.0) gm/dl Globulin 3.1 (2.5-4.0) gm/dl Albumin/Globulin Ratio 1.5 (0.9-2) Lipase 40 (11-82) U/L HCG, Qual Negative (Negative) Urine Color Yellow Urine Appearance Turbid A (Clear) Urine pH 5.0 (4.5-7.5) Ur Specific [place] 1.018 (1.000-1.030) Urine Protein 1+ H (Negative) Urine Glucose (UA) Negative (Negative) Urine Ketones 2+ H (Negative) Urine Blood Trace H (Negative) Urine Nitrite Negative (Negative) Urine Bilirubin Negative (Negative) Urine Urobilinogen Negative (Negative) Ur Leukocyte Esterase Trace H (Negative) Urine WBC (Auto) 11-20 H (0-5) /hpf Urine RBC (Auto) 0-2 (0-2) /hpf U Hyaline Cast (Auto) >20 H (0-2) /lpf U Epithel Cells (Auto) >20 H (0-2) /hpf Urine Bacteria (Auto) None Seen (None Seen) Calcium Oxalate Crystal Present A (None Prsent) Hyaline Casts Present A (None Presnt) /lpf WBC Casts Present A (None Prsent) /lpf Administered Medications Dextrose/Sodium Chloride (D5w And Nss) 1,000 mls @ 125 mls/hr IV .Q8H [facility] Stop: 05/16/24 16:59 Last Admin: 04/16/24 16:53 Dose: 125 mls/hr Documented By: KENDAL Discontinued Medications Sodium Chloride (Nss) 1,000 mls @ 999 mls/hr IV .Q1H1M MAYUR Stop: 04/16/24 16:00 Last Infusion: 04/16/24 16:45 Dose: Infused Documented By: Admin: 04/16/24 15:33 Dose: 999 mls/hr Documented By: KENDAL Sodium Chloride (Nss) 1,000 mls @ 125 mls/hr IV .Q8H MAYUR Stop: 05/16/24 15:59 Last Admin: 04/16/24 16:25 Dose: Not Given Documented By: KENDAL Ondansetron HCl (Ondansetron Inj 2 Mg/Ml 2 Ml Vial) 4 mg IV NOW STA Stop: 04/16/24 16:10 Last Admin: 04/16/24 16:16 Dose: 4 mg Documented By: ARS Imaging Data Radiologist's Impression: Abdomen/Pelvis CT 04/16/24 16:09 CT OF THE ABDOMEN AND PELVIS WITHOUT CONTRAST CLINICAL HISTORY: Vomiting, abdominal pain, acute renal failure. COMPARISON STUDY: CT of the abdomen and pelvis November 24, 2022. TECHNIQUE: Axial images of the abdomen and pelvis were obtained without IV contrast. Images were reviewed in the axial, sagittal, and coronal planes. Automated exposure control was utilized for the study. A dose lowering technique was utilized adhering to the principles of ALARA. FINDINGS: Lung bases are unremarkable. There is no pneumatosis, free air or portal venous gas. No renal, ureteral or bladder calculi are present. There is no hydronephrosis or hydroureter. Evaluation of the remainder of the abdomen and pelvis is suboptimal on this unenhanced exam. Liver, spleen, adrenal glands and pancreas are unremarkable. No biliary or pancreatic ductal dilatation. No peripancreatic or pericholecystic infiltration. The appendix is normal. There is no evidence for a bowel obstruction. There is no lymphadenopathy. No fluid collections. Pelvic calcifications represent phleboliths. Bilateral psoas atrophy is again noted. IMPRESSION: 1. No urinary calculi or hydronephrosis. 2. No acute process within the abdomen or pelvis on unenhanced exam. 3. Normal appendix. No bowel obstruction. ACT 112: Negative or not required by law. Electronically signed by: Link Narayan M.D. 04/16/2024 4:57 PM Discharge Plan Visit Data Chief Complaint: Nausea Stated Complaint: NAUSEA/VOMITING ED Provider: Cabrera Rogers Discharge Problem: Acute renal failure, Acute dehydration, Diabetes mellitus with gastroparesis, Hypoglycemia Forms Stand Alone Forms: My [facility] [employer] Prescriptions Prescriptions: No Action (DME) Dexcom G7 Sensor Device See Rx Instructions .ROUTE .MEDSUPPLY Qty: 1 Rx Instructions: As directed Ozempic 1 mg/dose (4 mg/3 mL) pen injector subcut (DME) Dexcom G7 Primer Supervisor Misc See Rx Instructions .ROUTE .MEDSUPPLY Qty: 1 Rx Instructions: As directed (DME) lancets [OneTouch Delica Plus Lancet] 30 gauge misc See Rx Instructions .ROUTE .MEDSUPPLY Qty: 100 Rx Instructions: As directed (DME) OneTouch Verio test strips Strip See Rx Instructions .ROUTE .MEDSUPPLY Qty: 10 Rx Instructions: As directed (DME) blood-glucose meter [OneTouch Verio Reflect Meter] Misc See Rx Instructions .ROUTE .MEDSUPPLY Qty: 1 Rx Instructions: As directed glipizide 10 mg tablet PO Rx Instructions: currently on hold until follow up with PCP metformin 1,000 mg tablet 1,000 mg PO BID diclofenac sodium 75 mg tablet,delayed release (DR/EC) 75 mg PO DAILY PRN mwfjyrhpopyg-Bp-mqlh-minerals 18-0.4 mg tablet 1 tab PO DAILY vitamin B complex Tablet 1 tab PO DAILY cholecalciferol (vitamin D3) 50 mcg (2,000 unit) capsule 50 mcg PO DAILY omeprazole 40 mg Capsule,Delayed Release(Dr/Ec) 40 mg PO HS etonogestrel-ethinyl estradiol [EluRyng] 0.12-0.015 mg/24 hr ring 1 vag ring VAGINAL UD clotrimazole-betamethasone 1-0.05 % cream 1 applic topical WK Rx Instructions: use twice daily for 2 weeks followed by once or twice weekly thereafter Referrals Referrals: Daina Brown MD [Primary Care Provider] -
[2024-04-16] MEDS: PANTOprazole 40 MG in SYRINGE 0 ML IV ONE (18:27)
[2024-04-16] MEDS: D5W AND LACTATED RINGERS 1,000 ML IV SCH (18:37)
[2024-04-16] MEDS ORDERED: DEXTROSE 50% 50 ML SYRINGE IV PRN (21:34)
[2024-04-16] MEDS ORDERED: ETONOGESTREL PV SCH (21:34)
[2024-04-16] MEDS ORDERED: ETHINYL ESTRADIOL PV SCH (21:34)
[2024-04-16] MEDS ORDERED: [UNRECOGNIZED DRUG - OTHER] PV SCH (21:34)
[2024-04-16] MEDS ORDERED: GLUCOSE 40% GEL 15 GM TUBE PO PRN (21:34)
[2024-04-16] MEDS ORDERED: GLUCAGON FOR INJ 1 MG VIAL SQ PRN (21:34)
[2024-04-16] MEDS ORDERED: CARBOHYDRATES FOR HYPOGLYCEMIA PO PRN (21:34)
[2024-04-16] MEDS ORDERED: GLUCOSE 10 TAB/TUBE PO PRN (21:34)
[2024-04-16] MEDS ORDERED: ACETAMINOPHEN 325 MG TAB PO PRN (21:34)
[2024-04-16] MEDS: INSULIN ASPART PER UNIT CHARGE SC SCH (22:06)
--- OUTSIDE RECORDS SUMMARY | 2024-04-16 22:44 | External Medical Summary | Continuity of Care Document ---
Author Name Unknown Organization [facility] [address] [place], [place] [address] Care Team Providers Care Combat Systems Operator Mine Warfare Name Role Phone Daina Brown Primary Care Physician [phone] [id number] Date(s): 03/26/24 - 03/26/24 [facility] [address] [facility] [address] [facility] [place], [place] [phone] Encounter Diagnosis Type 2 diabetes mellitus without complications(Final) - Mixed hyperlipidemia(Final) - Discharge Disposition: Home or Self Care Attending Physician: MD Stephanie, [place] Referring Physician: MD Stephanie, Daina Allergies, Adverse Reactions, Alerts Substance Criticality Severity Reaction Reaction Severity Status ketoconazole 1 rash, alopecia Active Adhesive bandage red spots Act farrah 1burning of skin and face broke in rash then skin peeled Immunizations Given and Recorded Vaccine Date Status Refusal Reason pneumococcal 23-valent vaccine 06/15/23 Given influenza virus vaccine, inactivated 06/15/23 Give n human papillomavirus vaccine 10/30/12 Given human papillomavirus vaccine 08/30/12 Given tetanus/diphtheria/pertuss, acel (Tdap) 08/30/12 G iven Medications Amitiza 24 mcg oral capsule Start: 06/14/23 5:20:00 PM EST, 1 cap, PO, bid, Disp# 180 cap, Refills: 3, Pharmacy: [facility] Start Date: 06/14/23 Stop Date: 06/08/24 Status: Ordered clobetasol 0.05% topical ointment Start: 11/10/23 4:28:00 PM EDT, 1 appl, topical, bid, Disp# 30 g, Refills: 2, to elbows, Pharmacy: [facility] Start Date: 11/10/23 Status: Ordered clobetasol 0.05% topical solution Start: 11/10/23 4:28:00 PM EDT, 1 appl, topical, bid, Disp# 50 mL, Refills: 5, to scalp, Pharmacy: [facility] Start Date: 11/10/23 Status: Ordered Dexcom G7 Timber Spotter Start: 01/20/23 12:01:00 AM EDT, See Instructions, Disp# 1 kit, as instructed, Pharmacy: [facility] Start Date: 01/20/23 Status: Ordered Dexcom G7 Sensor Start: 11/08/23 1:57:00 PM EDT, See Instructions, Disp# 3 kit, Refills: 5, as instructed, Pharmacy: [facility] [address] Start Date: 11/08/23 Status: Ordered DEXCOM G7 SENSOR MIS Start: 10/06/23 4:12:00 PM EDT, DEXCOM G7 SENSOR MIS, See Instructions, Disp# 3 each, Refills: 0, USE DIRECTED, Pharmacy [facility] Start Date: 10/06/23 Status: Ordered diclofenac sodium 75 mg oral delayed release tablet Start: 02/08/24 9:16:00 AM EDT, 1 tab, PO, bid, PRN: as needed for pain Start Date: 02/08/24 Status: Ordered lisinopril 2.5 mg oral tablet Start: 03/28/24 9:17:00 AM EDT, 1 tab, PO, Daily, Disp# 30 tab, Refills: 1, Pharmacy: [place] [address] Start Date: 03/28/24 Stop Date: 05/27/24 Status: Ordered metFORMIN 1000 mg oral tablet Start: 03/05/24 7:30:00 AM EDT, 1 tab, PO, bid, Disp# 180 tab, Refills: 0, Pharmacy: [place] [address] Start Date: 03/05/24 Status: Ordered multivitamin Start: 03/28/23 11:48:00 AM EDT, 1 tab, PO, Daily Start Date: 03/28/23 Status: Ordered NuvaRing 0.120 mg-0.015 mg/24 hours vaginal ring Start: 07/07/21 2:55:00 PM EST, 1 each, vaginal, [id number] Start Date: 12/21/21 Status: Ordered omeprazole 40 mg oral delayed release capsule Start: 05/06/23 8:16:00 AM EDT, 1 cap, PO, Daily, Disp# 90 cap, Refills: 3, [facility] Start Date: 05/06/23 Stop Date: 04/30/24 Status: Ordered Ozempic (1 mg dose) 4 mg/3 mL subQ pen Start: 02/21/24 9:30:00 AM EDT, 1 mg =, subQ, q7days, Disp# 9 mL, Refills: 0, Pharmacy: [facility] Start Date: 02/21/24 Status: Ordered Ozempic (2 mg dose) 8 mg/3 mL subQ pen Start: 03/28/24 9:09:00 AM EDT, 2 mg =, subQ, q7days, Disp# 3 pen_needle, Refills: 1, [facility] Start Date: 03/28/24 Stop Date: 09/24/24 Status: Ordered rosuvastatin 5 mg oral tablet Start: 03/28/24 9:16:00 AM EDT, 1 tab, PO, Daily, Disp# 30 tab, Refills: 1, [facility] Start Date: 03/28/24 Stop Date: 05/27/24 Status: Ordered Vitamin B Complex oral tablet Start: 03/28/23 11:48:00 AM EDT, 1 tab, PO, Daily Start Date: 03/28/23 Status: Ordered Vitamin D3 5000 intl units (125 mcg) oral tablet Start: 03/28/23 11:47:00 AM EDT, 1 tab, PO, Daily Start Date: 03/28/23 Status: Ordered Problem List Condition Confirmation Course Effective Dates Status H ealth Status Informant Acute effusion of both middle ears Confirmed Active Ankle instability Confirmed Active Anxiety Confirmed Active Bile reflux gastritis Confirmed Active Constipation Confirmed Active Muscle cramps Confirmed Active 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 GERD (gastroesophageal reflux disease) Confirmed Active Gastroparesis Confirmed Active Gestational diabetes mellitus Confirmed Active Left hip pain Confirmed Active Hip pain, right 1 Confirmed Active History of decompression of median nerve Confirmed Active Status post arthroscopy of hip Confirmed Active Scoliosis Confirmed Active Sacroiliitis Confirmed Active IT band syndrome Confirmed 2010 Active Joint pain 2 Confirmed Active Left flank pain Confirmed Active Left lumbar radiculopathy Confirmed Active L-S radiculopathy Confirmed Active Migraine Confirmed Active Leg weakness Confirmed Active Myofascial pain Confirmed Active Left shoulder pain Confirmed Active Peripheral neuropathy Confirmed Active Psoriasis Confirmed Active Right lumbar radiculitis Confirmed Active Lumbar back pain Confirmed Active Right shoulder tendinitis Confirmed Active Tension headache Confirmed Active Type 2 diabetes mellitus Confirmed Active 1right hip/LBP 2shoulder, hip pain Procedures Procedure Date Related Diagnosis Body Site Status Endoscopy 1 01/14/[address] 2 11/19/22 Completed Chest X-ray 3 10/29/22 Completed Ankle--surgical 08/2019 Completed Upper GI endoscopy 4, 5 03/01/19 C ompleted Ultrasound scan of upper abdomen 6 02/21/19 Completed Ultrasound scan of upper abdomen 7 02/21/19 Completed Cervical cytology finding 8 04/25/18 Completed MRI of knee Left 9 12/29/17 Comple reid Knee X-ray Left 10 12/07/17 Comple reid Knee X-ray right 11 12/07/17 Compl eted CXR - Chest X-ray 12 08/13/17 Comp leted MRI of lumbar spine 13 04/27/17 Co mpleted Pelvis X-ray 14 02/21/17 Completed Pelvis X-ray/Unilateral hip 15 02/21/17 Completed Plain X-ray lumbar spine normal 16 02/21/17 Completed PAP test date 17 11/03/16 Complete d Colonoscopy 18 10/05/16 Completed Endoscopy Upper 19 10/05/16 Comple reid MRI of brain stem 20 03/31/16 Comp leted MRI of cervical spine 21 03/23/16 Completed Thoracic spine 22 01/30/16 Complet ed PAP test date 23 10/22/15 Complete d MRI of lumbar spine 24 06/11/15 Co mpleted Left hip XRAY 25 04/28/15 Complete d Right hip XRAY 26 04/28/15 Complet ed XRAY of Pelvis 27 04/28/15 Complet ed Hip replacement 28 03/18/15 Comple reid MRI of hip 29 11/11/14 Completed PAP test date 30 10/17/14 Complete d Glucose tolerance test 31 10/15/14 Completed Arthroscopy of hip 32 04/23/14 Com pleted Right Hip Arthroscopy 33 04/23/14 Completed Carpal tunnel 2012 Completed Tonsillectomy 2006 Completed wisdom teeth 2003 Completed Arthroscopy 34 Completed REMOVE TONSILS AND ADENOIDS Completed 1IMpresion: Normal; esophagus, stomach examined duodenum. No specimens collected. 21. Unremarkable chest CT for age. (The abnormal chest x-ray is not available for comparison) 2. Hepatic steatosis. 31. no active disease in the chest 2. there is an indeterminant opacity in the retrosternal clear space seen in the lateral projection. this is of indeterminant significance and may be artifactural. 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 3) Negative for dysplasia and malignancy 5F/U as needed. 61. No cholelithiasis or sonographic evidence of acute cholecystitis. 2. No biliary ductal dilation. 3. Hepatic steatosis. 71. No cholelithiasis or sonographic evidence of acute cholecystitis. 2. No biliary ductal dilation. 3. Hepatic steatosis. 8Negative for intraepithelial lesion or malignancy. 9Impression: No evidence of internal arrangement. 10Impression: unremarkable radiographic assiessment of the left knee 11Impression: Unremarkable radiographic assessment of the right knee 12Impression: No acute cardiopulmonary findings. 13Impression: Eaerly disc desiccation at the L3-4 level. Otherwise normal examination. No disc herniations identified. No evidence of spinal or foraminal stenosis. 14The bones and joint spaces appear intact. There is no evidence of fracture, dislocation or bony disease. There is no evidence for soft tissue swelling. 15Negative 16No fracture or subluxation within the lumbar spine 17Negative for intraepithelial lesion or malignancy. 18One 3mm polyp in the rectum, removed with a cold biopsy. Resected and retrieved. The examined portion of the ileum was normal. The rectum, descending colon and ascending colon are normal. Biopsied. The distal rectum and anal verge are normal on retroflexion view. The examination was otherwise normal 19Impression: Normal esophagus Small hiatal hernia Normal stomach Normal examined duodenum No specimens collected. 20Unremarkable MRI of the brain. 21Impression: Negative study 22No convinving findingdis of significant. Equivocal slight disc buldgine in the lower levels. 23WNL, no transformation zone seen. 24There is no disc herniation, central canal stenosis, or neural foraminal narrowing seen throughout the lumbosacral spine. No acute bony abnormality is seen. 25No significant abnormalities on conventional radiographic imaging 26Minimal degenerative changes 27No evidence of fracture. No evidence of erosive disease. 28d/t impingement syrdome with labral degeneration- left hip 29Impression: No fracture or dislocation within the left hip. There is normal signal intensity within the labrum. The superior labrum is truncated. However, thisis nearly identical to the right hip MRI dated 12/03/13. There fore, this could be the patient's normal labral appearance. A small labral tear could also have a similar appearance. 30WNL 31Fasting- 99 2 hour- 117 32Right hip arthroscopy with labral repair, debridement as well as femoroplasty 33With PSOAS recession articular cartilage trimming with labral repair,small pincer resection and small cam lesion resection. 34right and left hips 2013 and 2014 Results Laboratory List Name Date Comprehensive Metabolic Panel (COMP META B PANEL) 03/26/24 Hemoglobin A1C (HEMOGLOBIN, A1C) 03/26/24 Lipid Profile (LIPOPROTEINS) 03/26/24 Microalbumin, Urine, Random (MICROALBUMI N, RD UR) 03/26/24 Most recent to oldest [Reference Range]: 1 eGFR CKD-EPI [>60 mL/min/1.73 m2] 86 mL/ min/1.73 m2 1 (03/26/24 8:11 AM) Estimated Average Glucose 108 mg/dL 2 (03/26/24 8:11 AM) Non-HDL 149 mg/dL 3 (03/26/24 8:11 AM) Estimated CrCl 74.64 mL/min (03/26/24 8:42 AM) Micro Alb (u) [<2.00 mg/dL] <1.20 mg/dL (03/26/24 8:11 AM) Anion Gap [5-14 mmol/L] 5 mmol/L (03/26/24 8:11 AM) Alb [3.5-5.0 g/dL] 3.9 g/dL (03/26/24 8:11 AM) Alk Phos [38-126 unit/L] 49 unit/L (03/26/24 8:11 AM) ALT [<35 unit/L] 16 unit/L (03/26/24 8:11 AM) AST [15-46 unit/L] 19 unit/L (03/26/24 8:11 AM) BUN [7-20 mg/dL] 14 mg/dL (03/26/24 8:11 AM) Ca [8.4-10.2 mg/dL] 9.2 mg/dL (03/26/24 8:11 AM) Chol/HDL 3 (03/26/24 8:11 AM) Chol [125-200 mg/dL] 220 mg/dL *HI* (03/26/24 8:11 AM) Cl- [96-107 mmol/L] 105 mmol/L (03/26/24 8:11 AM) HCO3 [22-30 mmol/L] 25 mmol/L (03/26/24 8:11 AM) Cret [0.60-1.00 mg/dL] 0.89 mg/dL (03/26/24 8:11 AM) HbA1c [4.0-6.0 %] 5.4 % (03/26/24 8:11 AM) Glu [74-106 mg/dL] 117 mg/dL *HI* (03/26/24 8:11 AM) HDL [>35 mg/dL] 71 mg/dL (03/26/24 8:11 AM) K [3.5-5.1 mmol/L] 4.0 mmol/L (03/26/24 8:11 AM) LDL Chol, Calculated [50-130 mg/dL] 108 mg/dL (03/26/24 8:11 AM) Micro Alb Ratio [<20 ug/mg cret] NOT MARCIE CULATED ug/mg cret (03/26/24 8:11 AM) Na [137-145 mmol/L] 135 mmol/L *LOW* (03/26/24 8:11 AM) T Bili [0.2-1.3 mg/dL] 0.6 mg/dL (03/26/24 8:11 AM) Prot [6.3-8.2 g/dL] 7.0 g/dL (03/26/24 8:11 AM) TG [<200 mg/dL] 204 mg/dL *HI* (03/26/24 8:11 AM) Creat (u) 143.12 mg/dL 4 (03/26/24 8:11 AM) 1Result Comment: Testing Performed By: Dept of Pathology [facility] [address], [address] [place] [address] 2Result Comment: Testing Performed By: Dept of Pathology [facility] [address], [address], [place] [address] 3Result Comment: Testing Performed By: Dept of Pathology [facility] [address], [address] [facility], [place] [address] 4Result Comment: Reference Range for Random Urine Not Established. Social History Social History Type Response Smoking Status Never smoked cigaret juan Sex Female Sex Representation Female (finding) Implantable Device List Procedure Provider Procedure Date Device Type Site Unknown Unknown 09/12/19 Unknown Unknown Device Identifier Serial Number Lot or Batch Number Manufacturing Date Expiration Date Distinct Identification Code MRI Safety Implantable Status Assigning Authority Unknown Unknown [id number] Unknown 05/17/24 Unknown Unknown Active Unknown Unknown Unknown [id number] Unknown 06/16/24 Unknown Unknown Active Unknown Unknown Unknown [id number] Unknown 06/16/24 Unknown Unknown Active Unknown Patient Care team information Care Team Personnel Name: Cabrera Tiwari Position: HIS Supervisor_P Member Role: HIS Lifetime Name: CHRISTIAN Quintero Christina L Position: Physician - Podiatry Member Role: Lifetime Relationship Address: [address] Name: MD Stephanie, [place] Position: Physician - Family Med Member Role: Primary Care Provider Address: [address] [place] [address] Care Team Related Persons Name: EUSEBIA FAUST Name: JOSE FERRARO Name: JOSE FERRARO
--- OUTSIDE RECORDS SUMMARY | 2024-04-16 22:44 | External Medical Summary | Continuity of Care Document ---
Author Name Unknown Organization [id number] Address [address] [place] [id number] Care Team Providers Care Document Design Specialist Name Role Phone Daina Brown Primary Care Physician [phone] [facility]counter [id number] Date(s): 03/21/24 - 03/21/24 [facility] [address] [place] [id number] [address] [place] [phone] Encounter Diagnosis Left shoulder pain(Discharge Diagnosis) - 03/21/24 Discharge Disposition: Home or Self Care Attending Physician: MD Adonis, Stanislav Jalloh Referring Physician: MD Juvencio, Ramiro Sher Allergies, Adverse Reactions, Alerts Substance Criticality Severity [...] bid, Disp# 180 cap, Refills: 3, Pharmacy: [facility] Start Date: 06/14/23 Stop Date: 06/08/24 Status: Ordered clobetasol 0.05% topical ointment Start: 11/10/23 4:28:00 PM EDT, 1 appl, topical, bid, Disp# 30 g, Refills: 2, to elbows, Pharmacy: [facility] Start Date: 11/10/23 Status: Ordered clobetasol 0.05% topical solution Start: 11/10/23 4:28:00 PM EDT, 1 appl, topical, bid, Disp# 50 mL, Refills: 5, to scalp, Pharmacy: [facility] Start Date: 11/10/23 Status: Ordered Dexcom G7 Equipment Tester Start: 01/20/23 12:01:00 AM EDT, See Instructions, Disp# 1 kit, as instructed, Pharmacy: [facility] [address] Start Date: 01/20/23 Status: Ordered Dexcom G7 Sensor Start: 11/08/23 1:57:00 PM EDT, See Instructions, Disp# 3 kit, Refills: 5, as instructed, Pharmacy: [facility] [place] [address] Start Date: 11/08/23 Status: Ordered DEXCOM G7 SENSOR MIS Start: 10/06/23 4:12:00 PM EDT, DEXCOM G7 SENSOR MIS, See Instructions, Disp# 3 each, Refills: 0, USE DIRECTED, Pharmacy [facility] [address] Start Date: 10/06/23 Status: Ordered diclofenac sodium 75 mg oral delayed release tablet Start: 02/08/24 9:16:00 AM EDT, 1 tab, PO, bid, PRN: as needed for pain Start Date: 02/08/24 Status: Ordered glipiZIDE 10 mg oral tablet Start: 01/02/24 7:35:00 AM EDT, 1 tab, PO, Daily, Disp# 90 tab, Refills: 0, Pharmacy: [facility] [address] Start Date: 01/02/24 Status: Ordered metFORMIN 1000 mg oral tablet Start: 03/05/24 7:30:00 AM EDT, 1 tab, PO, bid, Disp# 180 tab, Refills: 0, Pharmacy: [facility] [address] Start Date: 03/05/24 Status: Ordered multivitamin Start: 03/28/23 11:48:00 AM EDT, 1 tab, PO, Daily Start Date: 03/28/23 Status: Ordered NuvaRing 0.120 mg-0.015 mg/24 hours vaginal ring Start: 07/07/21 2:55:00 PM EST, 1 each, vaginal, [id number] Start Date: 07/07/21 Status: Ordered omeprazole 40 mg oral delayed release capsule Start: 05/06/23 8:16:00 AM EDT, 1 cap, PO, Daily, Disp# 90 cap, Refills: 3, [facility] Start Date: 05/06/23 Stop Date: 04/30/24 Status: Ordered Ozempic (1 mg dose) 4 mg/3 mL subQ pen Start: 02/21/24 9:30:00 AM EDT, 1 mg =, subQ, q7days, Disp# 9 mL, Refills: 0, [facility] Start Date: 02/21/24 Status: Ordered Vitamin B Complex oral tablet Start: 03/28/23 11:48:00 AM EDT, 1 tab, PO, Daily Start Date: 03/28/23 Status: Ordered Vitamin D3 5000 intl units (125 mcg) oral tablet Start: 03/28/23 11:47:00 AM EDT, 1 tab, PO, Daily Start Date: 03/28/23 Status: Ordered Mental Status 03/21/24 Barriers to Learning one year None evide nt Mandatory Health Literacy Documentation Yes Health Literacy Communication Barriers N ever Primary Language Czech Problem List Condition Confirmation Course Effective Dates [...] Confirmed Active 1right hip/LBP 2shoulder, hip pain Diagnosis Diagnosis Type Effective Dates Health Status Cl inical Service Informant Left shoulder pain Discharge Diagnosis 03/21/24 Procedures Procedure Date Related Diagnosis Body Site Status Endoscopy 1 01/14/[address] 2 11/19/22 Completed Chest X-ray 3 10/29/22 Completed Ankle--surgical [id number] 08/2019 Completed Upper GI endoscopy 4, 5 [...] Hip Arthroscopy 33 04/23/14 Completed Carpal tunnel 2013 Completed Tonsillectomy 2007 Completed wisdom teeth 2003 Completed Arthroscopy 34 [...] 34right and left hips 2013 and 2014 Social History Social History Type Response Smoking Status Never smoked cigaret juan Sex Female Sex Representation Female (finding) Implantable Device List Procedure Provider Procedure Date Device Type Site Unknown Unknown 09/12/19 Unknown Unknown Device Identifier Serial Number Lot or Batch Number Manufacturing Date Expiration Date Distinct Identification Code MRI Safety Implantable Status Assigning Authority Unknown Unknown [id number] Unknown 05/17/24 Unknown Unknown Active Unknown Unknown Unknown [id number] Unknown 06/16/24 Unknown Unknown Active Unknown Unknown Unknown [id number] Unknown 06/16/24 Unknown Unknown Active Unknown Patient Care team information Care Team Personnel Name: Cabrera Tiwari Position: HIS Supervisor_P Member Role: HIS Lifetime Name: CHRISTIAN Quintero Christina L Position: Physician - Podiatry Member Role: Lifetime Relationship Address: [address] [place] [address] Name: MD Stephanie, [place] Position: Physician - Family Med Member Role: Primary Care Provider Address: [address] [place] [address] Care Team Related Persons Name: EUSEBIA FAUST Name: JOSE FERRARO Name: JOSE FERRARO
--- OUTSIDE RECORDS SUMMARY | 2024-04-16 22:44 | External Medical Summary | Continuity of Care Document ---
Author Name Unknown Organization [address] Address [address] [place] [id number] Care Team Providers Care Material Man Name Role Phone Daina Brown Primary Care Physician [phone] Encounter [facility] [id number] Date(s): 04/12/24 - 04/12/[address] [address] [phone] Encounter Diagnosis Constipation(Discharge Diagnosis) - 04/12/24 Gastroparesis(Discharge Diagnosis) - 04/12/24 GERD (gastroesophageal reflux disease)(Discharge Diagnosis) - 04/12/24 Body mass index [BMI] 26.0-26.9, adult(Discharge Diagnosis) - 04/12/24 Discharge Disposition: Home or Self Care Attending Physician: AVELINA Osborn Kelli Jo Referring Physician: AVELINA Osborn Kelli Jo Allergies, Adverse Reactions, Alerts Substance Criticality Severity Reaction Reaction Severity Status ketoconazole 1 rash, alopecia Active Adhesive bandage red spots Act farrah 1burning of skin and face broke in rash then skin peeled Assessment and Plan Extracted from: Title:Office Visit Note Author:AVELINA Osborn Kell i Jo Date:04/12/24 1.Constipation Patient returns todaywith a history of chronic constipation. -Continue Amitiza, refill completed today. -May continue to add MiraLAX if needed for additionalconstipationmanagement 2.Gastroparesis - Patient is diabetic and GES02/2023 demonstrated marked retention of solids -I have againdiscussed with patient the gastroparesis diet including low-fat and low fiber. I have requested at this point in time she follow a gastroparesis liquid diet. The recommendation was that if the food has, she should not be consuming it currently. -I have discussed again with patient the findings of last year's gastric emptying study. I have gone over the hh-vk-boofvzikrtsdiesdh algorithm with her. She is interested in moving forward with metoclopramide. I have discussed with herthe adversereactions andrisksincludingpossible permanentneurologic changesto include tardive dyskinesia and dystonic reactions.She was advised that if she seeseither of thesesymptoms she is to discontinue the medication immediately. She was also advised to only take the medication for 8 weeks at a timeand then discontinue for 1monthbefore restarting the cycle. 5mg TID rx'd today, recommended starting twice daily and increasing to q8h if needed. Would consider increasing dose to 10mg if needed. -I have discussed with patientthe gastroparesis clinic in [place];I have also advised her that I do not believe they wouldtreat her or begin domperidonewhile taking 8 complicatingmedication such as her Ozempic. I am very concerned that her symptoms do exacerbate/worsensecondary to the use of this medication. 3.GERD (gastroesophageal reflux disease) Patient with history of acid reflux Continue [id number] mg p.o. daily, refill provided today 12/2022 EGD was unremarkable Surveillance colonoscopydue age 47. GI follow up in 3months, sooner if needed. I have spent 42minutes in evaluation, education and documentation of this pt in both face to face and non-face to face activities. Immunizations Given and Recorded Vaccine Date Status Refusal Reason pneumococcal 23-valent vaccine 06/15/23 Given influenza virus vaccine, inactivated 06/15/23 Give n human papillomavirus vaccine 10/30/12 Given human papillomavirus vaccine 08/30/12 Given tetanus/diphtheria/pertuss, acel (Tdap) 08/30/12 G iven Medications Amitiza 24 mcg oral capsule Start: 04/12/24 8:52:00 AM EDT, 1 cap, PO, bid, Disp# 180 cap, Refills: 3, Pharmacy: [id number] Start Date: 04/12/24 Stop Date: 04/07/25 Status: Ordered clobetasol 0.05% topical ointment Start: 11/10/23 4:28:00 PM EDT, 1 appl, topical, bid, Disp# 30 g, Refills: 2, to elbows, Pharmacy: [facility] Start Date: 11/10/23 Status: Ordered clobetasol 0.05% topical solution Start: 11/10/23 4:28:00 PM EDT, 1 appl, topical, bid, Disp# 50 mL, Refills: 5, to scalp, Pharmacy: [facility] Start Date: 11/10/23 Status: Ordered Dexcom G7 Oracle Software Engineer Start: 01/20/23 12:01:00 AM EDT, See Instructions, Disp# 1 kit, as instructed, Pharmacy: [facility] [facility] [id number] Start Date: 01/20/23 Status: Ordered Dexcom G7 Sensor Start: 11/08/23 1:57:00 PM EDT, See Instructions, Disp# 3 kit, Refills: 5, as instructed, Pharmacy: [facility] [facility] [id number] Start Date: 11/08/23 Status: Ordered DEXCOM G7 SENSOR MIS Start: 10/06/23 4:12:00 PM EDT, DEXCOM G7 SENSOR MIS, See Instructions, Disp# 3 each, Refills: 0, USE DIRECTED, Pharmacy [facility] [facility] [id number] Start Date: 10/06/23 Status: Ordered diclofenac sodium 75 mg oral delayed release tablet Start: 03/29/24 11:20:00 AM EDT, 1 tab, PO, bid, Disp# 180 tab, Refills: 0, PRN: as needed for pain,Pharmacy: [place] [facility] [id number] Start Date: 03/29/24 Status: Ordered lisinopril 2.5 mg oral tablet Start: 03/28/24 9:17:00 AM EDT, 1 tab, PO, Daily, Disp# 30 tab, Refills: 1, Pharmacy: [facility] [facility] [id number] Start Date: 03/28/24 Stop Date: 05/27/24 Status: Ordered metFORMIN 1000 mg oral tablet Start: 03/05/24 7:30:00 AM EDT, 1 tab, PO, bid, Disp# 180 tab, Refills: 0, Pharmacy: [facility] [id number] Start Date: 03/05/24 Status: Ordered metoclopramide 5 mg/5 mL oral syrup Start: 04/12/24 9:04:00 AM EDT, 5 mL, PO, q8h, Disp# 1,350 mL, Refills: 1, Take for 2 months, then discontinue for 1 month and restart cycle, Pharmacy: [id number] Start Date: 04/12/24 Stop Date: 10/09/24 Status: Ordered multivitamin Start: 03/28/23 11:48:00 AM EDT, 1 tab, PO, Daily Start Date: 03/28/23 Status: Ordered NuvaRing 0.120 mg-0.015 mg/24 hours vaginal ring Start: 07/07/21 2:55:00 PM EST, 1 each, vaginal, [id number] Start Date: 07/07/21 Status: Ordered omeprazole 40 mg oral delayed release capsule Start: 04/12/24 8:52:00 AM EDT, 1 cap, PO, Daily, Disp# 90 cap, Refills: 3, Pharmacy: [id number] Start Date: 04/12/24 Stop Date: 04/07/25 Status: Ordered Ozempic (1 mg dose) 4 mg/3 mL subQ pen Start: 02/21/24 9:30:00 AM EDT, 1 mg =, subQ, q7days, Disp# 9 mL, Refills: 0, Pharmacy: [id number] Start Date: 02/21/24 Status: Ordered Ozempic (2 mg dose) 8 mg/3 mL subQ pen Start: 03/28/24 9:09:00 AM EDT, 2 mg =, subQ, q7days, Disp# 3 pen_needle, Refills: 1, Pharmacy: [id number] Start Date: 03/28/24 Stop Date: 09/24/24 Status: Ordered rosuvastatin 5 mg oral tablet Start: 03/28/24 9:16:00 AM EDT, 1 tab, PO, Daily, Disp# 30 tab, Refills: 1, Pharmacy: [id number] Start Date: 03/28/24 Stop Date: 05/27/24 Status: Ordered Vitamin B Complex oral tablet Start: 03/28/23 11:48:00 AM EDT, 1 tab, PO, Daily Start Date: 03/28/23 Status: Ordered Vitamin D3 5000 intl units (125 mcg) oral tablet Start: 03/28/23 11:47:00 AM EDT, 1 tab, PO, Daily Start Date: 03/28/23 Status: Ordered Mental Status 04/12/24 Barriers to Learning one year None evide nt Mandatory Health Literacy Documentation Yes Communication Barrier Present No Health Literacy Communication Barriers N ever Primary Language Bengali Problem List Condition Confirmation Course Effective Dates [...] Diagnosis Diagnosis Type Effective Dates Health Status Clinical Service Informant GERD (gastroesophageal reflux disease) Discharge Diagnosis 04/12/24 Non-Specified Constipation Discharge Diagnosis 04/12/24 Non-Specified Gastroparesis Discharge Diagnosis 04/12/24 Non-Specified Body mass index [BMI] 26.0-26.9, adult Discharge Diagnosis 04/12/24 Non-Specified Procedures Procedure Date Related Diagnosis Body Site Status Endoscopy 1 01/14/[address] 2 11/19/22 Completed Chest X-ray 3 10/29/22 Completed Ankle--surgical [id number] 08/2019 Completed Upper GI endoscopy 4, 5 [...] 04/23/14 Completed Carpal tunnel 2013 Completed Tonsillectomy 2006 Completed wisdom teeth 2003 [...] 34right and left hips 2013 and 2014 Vital Signs Most recent to oldest [Reference Range]: 1 Height 153.6 cm (04/12/24 8:38 AM) Patient Weight 62.5 kg (04/12/24 8:38 AM) Body Mass Index 26.49 kg/m2 (04/12/24 8:38 AM) Blood Pressure 112/68mmHg (04/12/24 8:38 AM) Cuff Pulse Pressure 44 mmHg (04/12/24 8:38 AM) BP Location # 1 Left Arm (04/12/24 8:38 AM) Social History Social History Type Response Smoking Status Never smoked cigaret juan Sex Female Sex Representation Female (finding) Implantable Device List Procedure Provider Procedure Date Device Type Site Unknown Unknown 09/12/19 Unknown Unknown Device Identifier Serial Number Lot or Batch Number Manufacturing Date Expiration Date Distinct Identification Code MRI Safety Implantable Status Assigning Authority Unknown Unknown [id number] Unknown 05/17/24 Unknown Unknown Active Unknown Unknown Unknown [id number] Unknown 06/16/24 Unknown Unknown Active Unknown Unknown Unknown [id number] Unknown 06/16/24 Unknown Unknown Active Unknown Gastroenterology Outpatient Note * AVELINA Osborn, Charmaine Roselia: PERFORM Event Display: Gastroenterology Outpt Note Authored Date: [id number] Chief Complaint Pt here for f/u with a Hx of gastroparesis. Pt is c/o worsening nausea, throat burning, occ vomiting, early saeity. Pt just recently start on cholesterol medication and is on ozempic History of Present Illness The patient is a pleasant [id number] presents today forfollow-up evaluation ofgastroparesis. [facility]. Prior records: 10/05/2016: EGD and colonoscopynotes are reviewed.EGDdemonstrated small hiatal hernia; regular Z-line found 32 cm from the incisors; normal examined stomach, duodenum, cardia, gastric fundus.Colonoscopydemonstrated 3 mm polyp in the rectum which was sessile and removed; terminal ileum appeared normal; rectum, descending colon, ascending colon appeared normal with biopsies obtained.Pathology results demonstrated rectal polyp biopsy with hyperplastic polyp, ascending colon biopsy descending colon and rectum biopsy demonstrated no significant pathologic abnormality. Repeat colonoscopy when appropriate for screening. 02/13/2019:GI office visit notes are reviewed from Dr. Puga for complaints of heartburn, nausea,dyspepsia, hematemesis. Continue omeprazole 40 mg daily. Obtain ultrasound of the gallbladder and EGD for further evaluation. 02/21/2019: Right upper quadrant ultrasound was obtained due to complaints of abdominal pain which demonstrated 1. No cholelithiasis or sonographic evidence of acute cholecystitis. 2. No biliary ductaldilation. 3. Hepatic steatosis. 03/01/2019: EGD notes are reviewed which demonstrated regular Z-line found 30 cm from the incisors; small hiatal hernia; normal examined stomach and second portion of the duodenum with biopsies obtained. Pathology results demonstrated benign small bowel mucosa without pathologic change negative for dysplasia, malignancy, active duodenitis 07/07/2021 GI OV: the patient presents today formedication refill. She is a former patient of Dr. Puga. Currently maintained for GERD on omeprazole 40 mg daily. She reports overall she has been doing quite well. Denies any unintentional weight loss. She states she only has symptoms ifshe misses a dose of PPI. Denies anycough, sore throat,hoarseness of her voice. Reports mild nausea if she misses dose of the omeprazole. No vomiting. Nohematemesis. Noreal concernswith swallowing occasionally has difficulty with meat. Heartburn and reflux well controlled on omeprazole. No routine use of aspirin. She does however takeanti-inflammatory medication in the form of ibuprofen frequently due to some bilateral hip issues. Denies anyabdominal pain. Reports bowel movement daily. Denies melena or hematochezia. 11/24/2022: ER notes are reviewed from [facility] for patient with complaints of abdominal pain, left upper quadrant pain, gastritis, hepatic steatosis. Patient reported left flank/abdominal painbeginning 4 PM in the afternoon prior to ER evaluation. Labs included CBC within normal limits, chemistry without metabolic acidosis. Glucose on chemistry elevated to 368. AST 80, ALT 63 mildlyelevated with normal total bili and alk phos. Lipase negative. UA negative hCG negative. 11/24/2022: CT abdomen pelvis with IV contrast was obtained due to abdominal pain which demonstratedno acute findings in the abdomen or pelvis 11/24/2022: CT angiogram of the chest with IV contrast was obtained demonstrated normal CT angiogramchest without pulmonary emboli identified. 12/15/2022 GI OV: Patient presents today for ED follow-up of left sided abdominal pain. Patient reports that she began havingpainunder her left lower ribs. 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 She states the pain was severe enough that it caused issues with driving and walking. She did go to the emergency departmentwith summary as noted above. They did diagnose her with gastritis and advised to follow-upwith PCP/GI. She did see PCP at dischargeas she wasnew diagnosis of diabetes. She was started on metformin and Ozempic at that time. Patient denies anyfever, chills, night sweats. No cough, sore throat, hoarse voice. Denies dysphagia. She does note increased heartburn/reflux symptomswhen missing medication dosing. She also notes that she has wokenat night withcomplaints of bile reflux. Currently taking Prilosec 40 mg daily. Denies nausea or vomiting. Denies routine aspirin use but does take NSAIDsdaily. Typically takes ibuprofen 800 mg/day. Abdominal pain bernice her left side ather ribs. Reports 1 liquid bowel movement daily. Denies melena or hematochezia. 01/14/2023: EGD notes are reviewed obtained due to history of heartburn which demonstrated normal esophagus, stomach, duodenum. There were no specimens collected. 01/21/2023 GI OV:Patient presents today for follow-up of gastritis and left upper quadrant abdominal pain. Patient reports that left upper quadrant pain has primarily resolved. He continues to bemusculoskeletal as thought last office visit. She has been using PPI twice daily with improvementin reflux symptoms. We reviewed results of her EGD that were obtained in the interim since last office visit there was no evidence of any esophagitis or gastritis. The patient continues to have reflux of primarily bile but at times food that wakes her from sleep. 03/16/2023: Nuclear medicine gastric emptying study obtained demonstrated markedly delayed gastric emptying for solids with approximately 100% activity remaining at the 1 hour time interval, 95% remaining at the 2 hour time interval (normal is less than 60%), and 91% activity remaining at the 4 hourtime interval (normal is less than 10%). 04/07/2023 GI OV:Patient presents today for follow-up of gastritis and left upper quadrant abdominal pain. Patient reports that left upper quadrant pain has primarily resolved.Continues PPI daily with improvement in reflux symptoms.The patient continues to have reflux of primarily bile but at times food that wakes her from sleep. Reviewed results of gastric emptying study. Patient has tried to make low fat, low fiber dietary changes 05/06/2023 OV ([place]):Patient returns today to discuss her ongoing GI health. She states thatother than her constipation she has no real complaintsas long as she remains on her heartburn medication. She states that she has not really vomited since ide of a single episode of cars ickness when riding the back of a [employer] achaperone. She states thatshe only really has symptoms at night if she lays on the wrong sideand this has not happened in a while. She believes it happened 1 time last month. She denies abdominal pain. She states her biggest concern is that the Linzess has not been helping her. She has a Divide type IV bowel [id number] 3 times per week at best. However none of these bowel movements are significant in nature. Patient states that she is struggling to balance her low-fat low fiber gastroparesis dietwhich increases car bohydratevalueswith herdiabetes diet. Her glipizide was reduced recently due to low fastingglucoses which has now driven upsome of her values. For example, last night she had 180. 04/12/2024OV ([place]):Pt returns today for follow up of gastroparesis, constipation, and GERD.Patient states thatin the last yearher GI symptoms have been up and down, on and off. She states that she will have several great weeks in a rowand then suddenly havesevere symptoms.She states that she has not noticed any actual heartburn or acid reflux up her throat, but will occasionally note a raw sensation in her throat. She complains that she has had very little appetiteand then when she does eat it is very littlein amounts. She states that it used to be that her symptoms would creep up on her once a month or lessand now it seems like it isroutinely twice a month and occasionally lasting for several days. She gives an example that last nightshe plannedon having soup and a dinner role. She was able to get the dinner roll down but then struggledtotouch the soup as she was already feeling excessively full. She states that sometimes she will lay down on her left side with the symptoms and it does help. Patient has had the addition of several new medications. Lisinopril,Rosuvastatin,as well as an increase in her Ozempic dose.Froma constipation standpoint she states that she will gofor several days well on her Amitiza and then for several days she will have no bowel movement. She does not complain of diarrhea or constipation such as straining or incomplete evacuation today. Social history: She is a lifetime non-smoker. She does not consume alcohol. Denies use of recreational drugs including marijuana. She works at the [employer]. 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 No further complaints or concerns today. Physical Exam Vitals & Measurements BP:112/68 HT:153.6cm WT:62.500kg(Dosing) WT:62.5kg BMI:26.49 General:Alert and oriented, No acute distress, appears stated age HENT:Normocephalic, normal hearing Respiratory: Respiration are non-labored, pt speaking in complete sentences,and no evidence of respiratory distress is noted Integumentary:Exposed skin viewable is dry and intact Psychiatric:Cooperative, appropriate mood & affect, Normal judgement Assessment/Plan 1.Constipation Patient returns todaywith a history of chronic constipation. -Continue Amitiza, refill completed today. -May continue to add MiraLAX if needed for additionalconstipationmanagement 2.Gastroparesis - Patient is diabetic and GES02/2023 demonstrated marked retention of solids -I have againdiscussed with patient the gastroparesis diet including low-fat and low fiber. I have requested at this point in time she follow a gastroparesis liquid diet. The recommendation wasthat if the food has, she should not be consuming it currently. -I have discussed again with patient the findings of last year's gastric emptying study. I have gone over the pw-mo-mqppnzqkmoojvuddd algorithm with her. She is interested in moving forward with metoclopramide. I have discussed with herthe adversereactions andrisksincludingpossible permanentneurologic changesto include tardive dyskinesia and dystonic reactions.She was advised that if she seeseither of thesesymptoms she is to discontinue the medication immediately. She was also advised to only take the medication for 8 weeks at a timeand then discontinue for 1monthbefore restarting the cycle. 5mg TID rx'd today, recommended starting twice daily and increasing to q8h if needed. Would consider increasing dose to 10mg if needed. -I have discussed with patientthe gastroparesis clinic in [place];I have also advised her that I do not believe they wouldtreat her or begin domperidonewhile taking 8 complicatingmedicationsuch as her Ozempic. I am very concerned that her symptoms do exacerbate/worsensecondary to theuse of this medication. 3.GERD (gastroesophageal reflux disease) Patient with history of acid reflux Continue mg p.o. daily, refill provided today 12/2022 EGD was unremarkable Surveillance colonoscopydue age 47. GI follow up in 3months, sooner if needed. I have spent 42minutes in evaluation, education and documentation of this pt in both face to face and non-face to face activities. Problem List/Past Medical History Ongoing Acute effusion of both middle ears Ankle instability Anxiety Bile reflux gastritis Constipation Maurisio-Danlos syndrome Femoral acetabular impingement Gastroparesis GERD (gastroesophageal reflux disease) Gestational diabetes mellitus Hip pain, right History of decompression of median nerve IT band syndrome Joint pain L-S radiculopathy Left flank pain Left hip impingement syndrome Left hip pain Left lumbar radiculopathy Left shoulder pain Leg weakness Lumbar back pain Migraine Muscle cramps Myofascial pain Peripheral neuropathy Psoriasis Right lumbar radiculitis Right shoulder tendinitis Sacroiliitis Scoliosis Status post arthroscopy of hip Tension headache Type 2 diabetes mellitus Resolved Carpal Tunnel Syndrome Normal labor Obesity Procedure/Surgical History Endoscopy| Service Date: 3Chest CT| Service Date: 3Chest X-ray| Service Date: 3Ankle--surgical [id number]| Service Date: 08/2019Upper GI endoscopy| Service Date: 03/01/2019Ultrasound scan of upper abdomen| Service Date: 02/21/2019Ultrasound scan of upper abdomen| Service Date: 02/21/2019Cervical cytology finding| Service Date: 04/25/2018MRI of knee Left| Service Date: 12/29/2017Knee X-ray right| Service Date: 12/07/2017Knee X-ray Left| Service Date: 12/07/2017CXR - Chest X-ray| Service Date: 08/13/2017MRI of lumbar spine| Service Date: 04/27/2017Pelvis X-ray| Service Date: 02/21/2017Plain X-ray lumbar spine normal| Service Date: 02/21/2017Pelvis X-ray/Unilateral hip| Service Date: 02/21/2017PAP test date| Service Date: 11/03/2016Colonoscopy| Service Date: 10/05/2016Endoscopy Upper| Service Date: 10/05/2016MRI of brain stem| Service Date: 03/31/2016MRI of cervical spine| Service Date: 03/23/2016Thoracic spine| Service Date: 01/30/2016PAP test date| Service Date: 10/22/2015MRI of lumbarspine| Service Date: 06/11/2015Right hip XRAY| Service Date: 04/28/2015Left hip XRAY| ServiceDate: 04/28/2015XRAY of Pelvis| Service Date: 04/28/2015Hip replacement| Service Date: 015MRI of hip| Service Date: 11/11/2014PAP test date| Service Date: 10/17/2014Glucose tolerance test| Service Date: 10/15/2014rthroscopy of hip| Service Date: 04/23/2014Right Hip Arthroscopy| Service Date: 04/23/2014Carpal tunnel| Service Date: 2012Tonsillectomy| Service Date: 2006wisdom teeth| Service Date: 2003REMOVE TONSILS AND ADENOIDSArthroscopy Medications cholecalciferol(Vitamin D3 5000 intl units (125 mcg) oral tablet), 125 mcg= 1 tab, PO, Daily clobetasol topical(clobetasol 0.05% topical solution), 1 appl, topical, bid, 5 refills clobetasol topical(clobetasol 0.05% topical ointment), 1 appl, topical, bid, 2 refills diabetes supplies(Dexcom G7 Oracle Software Engineer), See Instructions diabetes supplies(Dexcom G7 Sensor), See Instructions, 5 refills diclofenac(diclofenac sodium 75 mg oral delayed release tablet), 1 tab, PO, bid, PRN ethinyl estradiol-etonogestrel(NuvaRing 0.120 mg-0.015 mg/24 hours vaginal ring), 1 each, vaginal, [id number] lisinopril(lisinopril 2.5 mg oral tablet), 2.5 mg= 1 tab, PO, Daily, 1 refills lubiprostone(Amitiza 24 mcg oral capsule), 24 mcg= 1 cap, PO, bid, 3 refills metFORMIN(metFORMIN 1000 mg oral tablet), 1 tab, PO, bid metoclopramide(metoclopramide 5 mg/5 mL oral syrup), 5 mg= 5 mL, PO, q8h, 1 refills multivitamin, 1 tab, PO, Daily multivitamin(Vitamin B Complex oral tablet), 1 tab, PO, Daily omeprazole(omeprazole 40 mg oral delayed release capsule), 40 mg= 1 cap, PO, Daily, 3 refills rosuvastatin(rosuvastatin 5 mg oral tablet), 5 mg= 1 tab, PO, Daily, 1 refills semaglutide(Ozempic (1 mg dose) 4 mg/3 mL subQ pen), 1 mg, subQ, q7days semaglutide(Ozempic (2 mg dose) 8 mg/3 mL subQ pen), 2 mg, subQ, q7days, 1 refills unlisted medication(DEXCOM G7 SENSOR MIS), See Instructions Allergies Adhesive bandagered spots ketoconazolerash, alopecia Social History Smoking Status Never smoked cigarettes Alcohol - Low Risk Employment/School Status:Employed Description:works at [employer] Exercise - Does not exercise Exercise type:Walking Home/Environment Lives with:Children, Spouse Feels unsafe at home:No Substance Abuse - Denies Substance Abuse Tobacco - Denies Tobacco Use Family History Alive and well: Mother, Father and Son. Diabetes: Father. Gallbladder disease: MGM and PGM. Gastric ulcer: Mother. Heart attack: MGF. Ovarian cancer: Maternal Aunt. Stroke: MGF. Stroke: MGF. Thyroid disease: Mother and MGM. Health Status Family Member(s) Immunizations Vaccine Date Status pneumococcal 23-valent vaccine 06/15/2023 Given influenza virus vaccine, inactivated 06/15/2023 Given human papillomavirus vaccine 10/30/2012 Given human papillomavirus vaccine 08/30/2012 Given tetanus/diphtheria/pertuss, acel (Tdap) 08/30/2012 Given Recommendations Health Maintenance Pending(in the next year) OverDue Adult Influenza Vaccine due01/15/24and every 1year Due Adult COVID-19 Vaccination due04/12/24Unknown Frequency Adult Folic Acid Supplementation due04/12/24and every 3year Adult Social Determinants of Health Screening due04/12/24Unknown Frequency Adult Tdap/Td Vaccine due04/12/24Unknown Frequency Diabetic Eye Exam due04/12/24Unknown Frequency Hepatitis C Screening due04/12/24One-time only Due In Future Diabetes Management A1c not due until03/27/25and every 366day Satisfied(in the past 1 year) Satisfied Adult Influenza Vaccine on06/15/23.Satisfied by ADELINA Pierre Heather Body Mass Index on04/12/24.Satisfied by ADELINA Mckeon Erin Diabetes Management A1c on03/26/24.Satisfied by Contributor_system, [email or web address] Diabetes Nephropathy Management on03/26/24.Satisfied by Contributor_system, [id number] Lipid Screening on03/26/24.Satisfied by Contributor_system, [id number] Pneumococcal Vaccine Adults and Adolescents with Chronic Illness on06/15/23.Satisfied by ADELINA Pierre Heather Electronic Signature on File CC: Daina Brown MD [address] [place] [address] Electronically Reviewed/Signed by: Charmaine Osborn PA-C Author Signature Dt/Tm:04/12/2024 09:29 AM Division of Gastroenterology [facility] Patient Care team information Care Team Personnel Name: Cabrera Tiwari Position: HIS Supervisor_P Member Role: HIS Lifetime Name: CHRISTIAN Quintero Christina L Position: Physician - Podiatry Member Role: Lifetime Relationship Address: [address] [place] [address] [place] Name: MD Brown [place] Position: Physician - Family Med Member Role: Primary Care Provider Address: [address] [place] [address] [place] Care Team Related Persons Name: EUSEBIA FAUST Name: JOSE FERRARO Name: JOSE FERRARO"
--- OUTSIDE RECORDS SUMMARY | 2024-04-16 22:44 | External Medical Summary | Continuity of Care Document ---
Author Name Unknown Organization [address] Address [address] [place] [id number] Care Team Providers Care Punch Press Operator Helper Name Role Phone Daina Brown Primary Care Physician [phone] [id number] Date([facility]28/[facility] - [facility]28/[address] [address] [phone] Encounter Diagnosis Body mass index [BMI] 27.0-27.9, adult(Discharge Diagnosis) - 03/28/24 ADHD (attention deficit hyperactivity disorder) evaluation(Discharge Diagnosis) - 03/28/24 Nail disorder(Discharge Diagnosis) - 03/29/24 Maurisio-Danlos syndrome(Discharge Diagnosis) - 03/29/24 Type 2 diabetes mellitus(Discharge Diagnosis) - 03/29/24 Mixed hyperlipidemia(Discharge Diagnosis) - 03/29/24 Discharge Disposition: Home or Self Care Attending Physician: MD Brown [place] Referring Physician: MD Brown [place] Allergies, Adverse Reactions, Alerts Substance Criticality Severity Reaction Reaction Severity Status ketoconazole 1 rash, alopecia Active Adhesive bandage red spots Act farrah 1burning of skin and face broke in rash then skin peeled Assessment and Plan Extracted from: Title:Office Visit Note Author:MD Stephanie, [facility] Date:03/28/24 1.Type 2 diabetes mellitus Chronic.At goal. Hemoglobin A1c5.4. Continuemetformin 1 gtwice a day. Increase Ozempic to 2 mgSQ q. 7 days. Discontinueglipizide. Will recheckhemoglobin A1c in 3 months. Discussed about adding low-doselisinopril2.5 mg once a dayto current regimen. 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 Was told that there is no specific treatment for EDS. 3.ADHD (attention deficit hyperactivity disorder) evaluation Requesting referral to psychiatryfor evaluation and treatment. Referral ordered today. 4.Nail disorder Advised totrimthe nailsregularly. Applyantifungal medication. Will checkiron panel. 5.Mixed hyperlipidemia Reviewed labs:Cholesterol 220HDL 71triglyceride 204. Will startatorvastatin 10 mg 1 tablet once a day.Discussed with patient possibleadverse reaction and side effects. Advised tocall us if there is any issue or concern withthe medication. Repeat FLPwith CMP in 3 months. Follow-up in 3 months. Advised to have her blood drawnprior to appointment. Immunizations Given and Recorded Vaccine Date Status Refusal Reason pneumococcal 23-valent vaccine 06/15/23 Given influenza virus vaccine, inactivated 06/15/23 Give n human papillomavirus vaccine 10/30/12 Given human papillomavirus vaccine 08/30/12 Given tetanus/diphtheria/pertuss, acel (Tdap) 08/30/12 G iven Medications Amitiza 24 mcg oral capsule Start: 06/14/23 5:20:00 PM EST, 1 cap, PO, bid, Disp# 180 cap, Refills: 3, [email or web address] Start Date: 06/14/23 Stop Date: 06/08/24 Status: Ordered clobetasol 0.05% topical ointment Start: 11/10/23 4:28:00 PM EDT, 1 appl, topical, bid, Disp# 30 g, Refills: 2, to elbows, [email or web address] Start Date: 11/10/23 Status: Ordered clobetasol 0.05% topical solution Start: 11/10/23 4:28:00 PM EDT, 1 appl, topical, bid, Disp# 50 mL, Refills: 5, to scalp, [email or web address] Start Date: 11/10/23 Status: Ordered Dexcom G7 Threshing Operator Start: 01/20/23 12:01:00 AM EDT, See Instructions, Disp# 1 kit, as instructed, [email or web address] Start Date: 01/20/23 Status: Ordered Dexcom G7 Sensor Start: 11/08/23 1:57:00 PM EDT, See Instructions, Disp# 3 kit, Refills: 5, as instructed, Pharmacy: [facility] Start Date: 11/08/23 Status: Ordered DEXCOM G7 SENSOR MIS Start: 10/06/23 4:12:00 PM EDT, DEXCOM G7 SENSOR MIS, See Instructions, Disp# 3 each, Refills: 0, USE DIRECTED, Pharmacy [facility] Start Date: 10/06/23 Status: Ordered diclofenac sodium 75 mg oral delayed release tablet Start: 03/29/24 11:20:00 AM EDT, 1 tab, PO, bid, Disp# 180 tab, Refills: 0, PRN: as needed for pain,Pharmacy: [facility] [id number] Start Date: 03/29/24 Status: Ordered lisinopril 2.5 mg oral tablet Start: 03/28/24 9:17:00 AM EDT, 1 tab, PO, Daily, Disp# 30 tab, Refills: 1, Pharmacy: [facility] [address] Start Date: 03/28/24 Stop Date: 05/27/24 Status: Ordered metFORMIN 1000 mg oral tablet Start: 03/05/24 7:30:00 AM EDT, 1 tab, PO, bid, Disp# 180 tab, Refills: 0, Pharmacy: [facility] [id number] Start Date: 03/05/24 Status: Ordered multivitamin Start: 03/28/23 11:48:00 AM EDT, 1 tab, PO, Daily Start Date: 03/28/23 Status: Ordered NuvaRing 0.120 mg-0.015 mg/24 hours vaginal ring Start: 07/07/21 2:55:00 PM EST, 1 each, vaginal, [id number] Start Date: 07/07/21 Status: Ordered omeprazole 40 mg oral delayed release capsule Start: 05/06/23 8:16:00 AM EDT, 1 cap, PO, Daily, Disp# 90 cap, Refills: 3, Pharmacy: [facility] [id number] Start Date: 05/06/23 Stop Date: 04/30/24 Status: Ordered Ozempic (1 mg dose) 4 mg/3 mL subQ pen Start: 02/21/24 9:30:00 AM EDT, 1 mg =, subQ, q7days, Disp# 9 mL, Refills: 0, Pharmacy: [facility] [id number] Start Date: 02/21/24 Status: Ordered Ozempic (2 mg dose) 8 mg/3 mL subQ pen Start: 03/28/24 9:09:00 AM EDT, 2 mg =, subQ, q7days, Disp# 3 pen_needle, Refills: 1, Pharmacy: [facility] Start Date: 03/28/24 Stop Date: 09/24/24 Status: Ordered rosuvastatin 5 mg oral tablet Start: 03/28/24 9:16:00 AM EDT, 1 tab, PO, Daily, Disp# 30 tab, Refills: 1, Pharmacy: [facility] Start Date: 03/28/24 Stop Date: 05/27/24 Status: Ordered Vitamin B Complex oral tablet Start: 03/28/23 11:48:00 AM EDT, 1 tab, PO, Daily Start Date: 03/28/23 Status: Ordered Vitamin D3 5000 intl units (125 mcg) oral tablet Start: 03/28/23 11:47:00 AM EDT, 1 tab, PO, Daily Start Date: 03/28/23 Status: Ordered Mental Status 03/28/24 Barriers to Learning one year None evide nt Mandatory Health Literacy Documentation Yes Health Literacy Communication Barriers N ever Primary Language Italian Problem List Condition Confirmation Course Effective Dates [...] Effective Dates Health Status Clinical Service Informant Body mass index [BMI] 27.0-27.9, adult Discharge Diagnosis 03/28/24 Non-Specified ADHD (attention deficit hyperactivity disorder) evaluation Discharge Diagnosis 03/28/24 Non-Specified Maurisio-Danlos syndrome Discharge Diagnosis 03/29/24 Non-Specified Type 2 diabetes mellitus Discharge Diagnosis 03/29/24 Non-Specified Nail disorder Discharge Diagnosis 03/29/24 Non-Specified Mixed hyperlipidemia Discharge Diagnosis 03/29/24 Non-Specified Procedures Procedure Date Related Diagnosis Body Site Status Endoscopy 1 01/14/[address] 2 11/19/22 Completed Chest X-ray 3 10/29/22 Completed Ankle--surgical [id number] 08/2019 Completed Upper GI endoscopy 4, 5 [...] oldest [Reference Range]: 1 Height 153.6 cm (03/28/24 8:17 AM) Patient Weight 65 kg (03/28/24 8:17 AM) Body Mass Index 27.55 kg/m2 (03/28/24 8:17 AM) Heart Rate 86 bpm (03/28/24 8:17 AM) Respiratory Rate 14 br/min (03/28/24 8:17 AM) Blood Pressure 108/70mmHg (03/28/24 8:17 AM) Cuff Pulse Pressure 38 mmHg (03/28/24 8:17 AM) Social History Social History Type Response Smoking Status Never smoked cigaret juan Sex Female Sex Representation Female (finding) Implantable Device List Procedure Provider Procedure Date Device Type Site Unknown Unknown 09/12/19 Unknown Unknown Device Identifier Serial Number Lot or Batch Number Manufacturing Date Expiration Date Distinct Identification Code MRI Safety Implantable Status Assigning Authority Unknown Unknown [id number] Unknown 05/17/24 Unknown Unknown Active Unknown Unknown Unknown [id number] Unknown 06/16/24 Unknown Unknown Active Unknown Unknown Unknown [id number] Unknown 06/16/24 Unknown Unknown Active Unknown FCM Outpt Note * MD Stephanie, [place]: PERFORM Event Display: FCM Outpt Note Authored Date: [id number] Chief Complaint 3 month follow up. Labs completed 03/26/24 History of Present Illness 39-year-old female here for follow-up of: -DM. States that her BS level in AM was in the 150's.She takes metformin1 g2 times a day,Ozempic1 mgSQq. 7 days.Glipizidewas discontinueddue to episodes ofhypoglycemia. States that she does not have episode of hypoglycemia anymore. - Hearing loss, both ears. Patient denies ear pain, dizziness, or headache. -Maurisio Danlos syndrome. Patient was seen by rheumatology last February 29, 2024: 1.ARIELLE positive Per rheumatology to 30% of the population can have a positive ARIELLE without having an active ARIELLE associated connective tissue disorder. The rheumatology cannot identify features consistent with an ARIELLE associated connective tissue disorder. 2. EDS (Maurisio-Danlos syndrome) Rheumatology recommended doing an echocardiogram given her EDS history. States that there are no special or unique rheumatology treatment for this condition. Agree with continued follow-up with orthopedic as well as periodic physical therapy. -Hips and kneespain managed.She is seeing orthopedic surgeon. -Shoulder issue forabout 1 year. Cannot reach behind and extendboth upper extremity. Had MRIof shoulder and neck, andEMG pending results.. She see . Patient had an MRI of the neck last 02/06/2024 which showed: No fracture or subluxation within the cervical spine. Straightening of the cervical spine. Mild degenerative changes without significant central canal or neural foraminal narrowing. -Complaining ofleft index fingernaildisorder. Since January 2024. States that it looks like a fungal infection. She has been clipping her nails. But when the nailgrows,looks brittle,soft and team. She had an MRI of the shoulder last 12/29/2023 which showed: 1. Mildly motion degraded exam. There is a mild supraspinatus and infraspinatus tendinosis without high-grade partial or full-thickness tear. 2. Mild caudal spurring of the acromion with trace subacromial and subdeltoid bursitis 3. Intact labrum and long head biceps tendon -Patient has triedmyofascial release and physical therapy with improvement of pain symptoms but continues to have weaknessof bothupper extremities. He - finger nail disorder since January 2024 left index finger has whitish discoloration and looks brittle. -ADHD. Patient wants to be evaluated forADHD. c/oHeadache, santana ofradha. Denies fever, dizziness. Denies nasal congestion, ear pain Denies chest pain or shortness of breath Denies abdominal pain, nausea or vomiting, diarrhea or constipation Denies dysuria, frequency or urgency of urination Denies blood in the urine or stool Review of Systems See HPI Physical Exam Vitals & Measurements HR:86(Monitored) RR:14 BP:108/70 SpO2:98% HT:153.6cm WT:65kg WT:65.000kg(Dosing) BMI:27.55 PHQ2 Data(Data Documented on:03/28/2024 08:17) Emotional health assessment NEGATIVE General: alert and oriented, no acute distress Eye: PERRL, EOMI, normal conjunctiva HENT: normocephalic, TMs clear, normal hearing, moist oral mucosa, no pharyngeal erythema, no sinus tenderness Neck: supple, non-tender, no lymphadenopathy, no thyromegaly Resp: Lungs CTA, non-labored respirations, BS equal, symmetrical expansion CV: normal rate and rhythm, no murmur, no gallop GI: soft, non-tender, non-distended, normal bowel sounds, no organomegaly : no CVA tenderness MS: normal gait. Integumentary: warm, dry, pink, no cyanosis, intact, moist, no pallor, no rash Left index finger nail: whitish discoloration tip of the nail, thin and brittle nail. Psychiatric: appropriate mood and affect, normal judgement, non-suicidal Assessment/Plan 1.Type 2 diabetes mellitus Chronic.At goal. Hemoglobin A1c5.4. Continuemetformin 1 gtwice a day. Increase Ozempic to 2 mgSQ q. 7 days. Discontinueglipizide. Will recheckhemoglobin A1c in 3 months. Discussed about adding low-doselisinopril2.5 mg once a dayto current regimen. 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 Was told that there is no specific treatment for EDS. 3.ADHD (attention deficit hyperactivity disorder) evaluation Requesting referral to psychiatryfor evaluation and treatment. Referral ordered today. 4.Nail disorder Advised totrimthe nailsregularly. Applyantifungal medication. Will checkiron panel. 5.Mixed hyperlipidemia Reviewed labs:Cholesterol 220HDL 71triglyceride 204. Will startatorvastatin 10 mg 1 tablet once a day.Discussed with patient possibleadverse reaction and side effects. Advised tocall us if there is any issue or concern withthe medication. Repeat FLPwith CMP in 3 months. Follow-up in 3 months. Advised to have her blood drawnprior to appointment. Attestation Time spent on pre-visit plannin minutes Face to face time spent w/ patient:35 minutes Time spent documenting pertinent clinical information into the EMR:9 minutes Total time:49 minutes Problem List/Past Medical History Ongoing Acute effusion [...] Service Date: 3Chest X-ray| Service Date: 3Ankle--surgical [id number]| Service Date: 08/2019Upper GI endoscopy| Service Date: [...] topical, bid, 2 refills diabetes supplies(Dexcom G7 Threshing Operator), See Instructions diabetes supplies(Dexcom G7 Sensor), See Instructions, 5 refills diclofenac(diclofenac sodium 75 mg oral delayed release tablet), 75 mg= 1 tab, PO, bid, PRN ethinyl estradiol-etonogestrel(NuvaRing 0.120 mg-0.015 mg/24 hours vaginal ring), 1 each, vaginal, i5bgeal lisinopril(lisinopril 2.5 mg oral tablet), 2.5 mg= 1 tab, PO, Daily, 1 refills lubiprostone(Amitiza 24 mcg oral capsule), 24 mcg= 1 cap, PO, bid, 3 refills metFORMIN(metFORMIN 1000 mg oral tablet), 1 tab, PO, bid multivitamin, 1 tab, PO, Daily multivitamin(Vitamin B [...] - Low Risk Employment/School Status:Employed Description:works at [employer] Exercise - Does not exercise Exercise type:Walking [...] due01/15/24and every 1year Due Adult COVID-19 Vaccination due03/29/24Unknown Frequency Adult Folic Acid Supplementation due03/29/24and every 3year Adult Social Determinants of Health Screening due03/29/24Unknown Frequency Adult Tdap/Td Vaccine due03/29/24Unknown Frequency Diabetic Eye Exam due03/29/24Unknown Frequency Hepatitis C Screening due03/29/24One-time only Due In Future Diabetes Management A1c not due until03/27/25and every 366day Satisfied(in the past 1 year) Satisfied Adult Influenza Vaccine on06/15/23.Satisfied by ADELINA Pierre Heather Body Mass Index on03/28/24.Satisfied by ADELINA Crystal Bobbi Diabetes Management A1c on03/26/24.Satisfied by Contributor_system, [email or web address] Diabetes Nephropathy Management on03/26/24.Satisfied by Contributor_system, [id number] Lipid Screening on03/26/24.Satisfied by Contributor_system, [id number] Pneumococcal Vaccine Adults and Adolescents with Chronic Illness on06/15/23.Satisfied by ADELINA Pierre Heather Electronic Signature on File Electronically Reviewed/Signed by: Daina Brown MD Author Signature Dt/Tm:03/29/2024 04:41 AM Department of Family Medicine [facility] Patient Care team information Care Team Personnel Name: Cabrera Tiwari Position: HIS Supervisor_P Member Role: HIS Lifetime Name: CHRISTIAN Quintero Christina L Position: Physician - Podiatry Member Role: Lifetime Relationship Address: [facility] [address] Name: MD Stephanie, Daina Position: Physician - Family Med Member Role: Primary Care Provider Address: [address] [place] [address] Care Team Related Persons Name: EUSEBIA FAUST Name: JOSE FERRARO Name: JOSE FERRARO"
[2024-04-17] MEDS: METOCLOPRAMIDE HCL 5 MG TABLET PO PRN (02:32)
[2024-04-17 07:18] VITALS: RESP 16; TEMP 98.2
[2024-04-17 07:18] LABS: BUN Creatinine Ratio 15.8 (10-20); Calcium 8.9 mg/dl (8.6-10.3); Creatinine Clr Calc Pharmacy 60.4 ml/min; Est GFR (African American) 82.4 ml/min; Est GFR (Non-African American) 71.1 ml/min; Potassium 3.5 mmol/L (3.5-5.1)
--- NOTE | 2024-04-17 08:09 | Hospitalist Progress Note ---
Date of Service April 17, 2024 Assessment & Plan (1) Gastroparesis: Plan: Presents with 5 days of progressive nausea and vomiting, saw her GI provider 04/12 and was started on Reglan without relief. no specific home regiment but takes omeprazole and Amitiza from GI standpoint. Dx with gastric emptying study 02/2023. CTAP: no acute process, no kidney stone. Gallbladder unremarkable. Possibly related to recent increase in Ozempic. - PPI converted to IV until can take PO reliably - Continue IVF with D5/LR x2L - clear liquid diet, advance as tolerated - prn Reglan PO, prn zofran IV (QTc okay) 8mg subling zofran (2) Acute kidney injury: Plan: Cr 2.17 on admission, baseline 0.60 -no stone on CT, suspect related to volume contraction - continue IVF - hold lisinopril, metformin - UC pending, without UTI symptoms, abx deferred on admission AM BMP (3) Diabetes: Plan: Home regiment - Metformin 1000mg BID, semaglutide, lisinopril --> HELD Last A1c at goal, 5%. Hypoglycemic on arrival. BSG ACHS SSI - CF only Plan Chronic stable medical conditons: * Family planning - continue Nuva Ring Dispo: admit to medical Dvt proh: low risk, encourage ambulation Code status: Full Admission and Anticipated Discharge Date Admission Date: April 16, 2024 Results & Data Results & Data Vital Signs (Past 12 Hours) Vital Signs Temp Pulse Resp BP Pulse Ox O2 Del Method 04/17/24 07:17 36.8 C 67 16 96/67 L 97 Room Air 04/17/24 07:00 Room Air 04/16/24 22:10 36.6 C 78 18 107/72 98 Room Air
[2024-04-17] MEDS: ONDANSETRON INJ 2 MG/ML 2 ML VIAL IV PRN (08:19)
[2024-04-17] MEDS: PANTOprazole 40 MG in SYRINGE 0 ML IV SCH (10:05)
[2024-04-17 10:25] LABS: Hematocrit (blood only) 31.1 % (37.0-47.0); Hemoglobin 10.8 g/dl (12.0-16.0); Mean Corpuscular Hemoglobin 30.2 pg (25.0-34.0); Mean Corpuscular Hgb Conc 34.7 g/dL (32.0-36.0); Mean Corpuscular Volume 86.9 fL (80.0-100.0); Mean Platelet Volume 10.5 fL (9.4-12.4); Platelet Count 229 K/uL (130-400); RDW Coefficient of Variation 11.9 % (11.5-14.5); RDW Standard Deviation 38.1 fL (36.4-46.3); Red Blood Count 3.58 M/uL (4.20-5.40); White Blood Count 5.11 K/ul (4.8-10.8)
--- NOTE | 2024-04-17 10:49 | Electrocardiogram Report ---
Test Reason : Blood Pressure : */* mmHG Vent. Rate : 75 BPM Atrial Rate : 75 BPM P-R Int : 172 ms QRS Dur : 76 ms QT Int : 418 ms P-R-T Axes : 50 46 59 degrees QTcB Int : 466 ms Normal sinus rhythm Normal ECG Confirmed by Tl Allan ([id number]) on 04/17/2024 10:48:41 AM Referred By: REFERRED SELF Confirmed By: Tl Allan
[2024-04-17 14:04] VITALS: BP 108/73; PULSE 73; O2SAT 99
--- NOTE | 2024-04-17 15:56 | Discharge Summary ---
Date of Service April 17, 2024 Admission HPI Per Admitting Provider Alicia is a 39F with a PMH of Diabetes, gastroparesis and Maurisio Danlos syndrome who presents to the ED with concerns of nausea and vomiting. States she over the last week she was having more heartburn feelings and that prompted her to make an appointment with her GI provider, Charmaine Osborn. Coincidently, the day of the appointment was the day she started vomiting. She was given Reglan and took this but is still vomiting, last vomited around 1230 this afternoon. No hematemesis. No infectious symptoms or fever. No urinary symptoms. ED Course: NSS x1L Zofran 4mg D5/NSS Admission Exam Per Admitting Provider General: NAD, VS as above, pleasant appears sick and fatigue HEENT: MM dry Resp: normal respiratory effort, lungs clear to auscultation CV: RRR, no murmur, Abd: normal bowel sounds, soft non tender Extremities: Moves all extremities, no edema Neuro: A&O x3, Skin: intact, no lesions noted Principal Diagnosis Gastroparesis flare Discharge Exam Gen: well-appearing, pleasant, NAD HEENT: NCAT, PERRL, MMM CV: RRR, no m/r/g, S1/S2 normal Resp: CTAB, symmetrical chest rise, breathing non-labored Abd: soft, NT/ND, +BS MSK: Full ROM, no gross deformities Skin: Warm, dry, pink, no rashes or lesions Neuro: AOx3, CN II-XII grossly intact Psych: Mood-affect congruent. Speech pace and content normal. Discharge Data Allergies Allergy/AdvReac Type Severity Reaction Status Date / Time adhesive Allergy Mild RASH Verified 02/29/24 09:12 ketoconazole Allergy Unknown Verified 02/29/24 09:12 Consultations 04/16/24 17:18 ED Decision to Admit Stat Ordered Studies 04/17/24 06:30 Chemistry 04/16/24 04/17/24 14:12 06:29 Sodium 134 L 138 Potassium 4.0 3.5 Chloride 97 L 105 Carbon Dioxide 19 L 26 Anion Gap 18 H 7 BUN 29 H 16 Creatinine 2.17 H 1.01 D Glucose 66 L 131 H Urinalysis 04/16/24 14:15 Urine Color Yellow Urine Appearance Turbid A Urine pH 5.0 Ur Specific [place] 1.018 Urine Protein 1+ H Urine Glucose (UA) Negative Urine Ketones 2+ H Urine Blood Trace H Urine Nitrite Negative Urine Bilirubin Negative Microbiology 04/16/24 14:15 Urine,Clean Catch Urine Culture - Preliminary No growth - Less than 1,000 colonies/mL, Final report to follow. 04/16/24 16:09 CT Abd and Pelvis [CT abd pelvis wo con] Stat Hospital Course (1) Diabetes: (2) Gastroparesis: - Dx'd w T2DM November 2022 and Diabetic gastroparesis in Feb 2023 - Most recent A1c 5.4%, from 10.7% at time of dx - On metformin 1000mg BID & lisinopril 2.5mg qAM (had some hypoglycemic eps w glipizide), managed by PCP Dr. Brown - Did well previously on 1mg/wk ozempic, but increased to 2mg after high fasting bsg in clinic - Nausea/vomiting since latest ozempic dose on 04/12 - Some relief w reglan over weekend, but presented to ED when sx persisted. Sx relieved with IV Zofran 4 mg - Discharged on reglan 5mg bid + zofran 4mg tid prn, instructed to return to 1mg dose of ozempic and continue w metformin & lisinopril - May want to consider alternatives to GLP1 agonists (3) Acute kidney injury: - likely 2/2 inadequate oral intake after days of nausea/vomiting - Cr 2.17 on arrival; improved to 1.01 after hydration Total Time Total Time Spent Total Time Spent (In Minutes): See attending documentation Discharge Plan Discharge Items Patient Disposition: Home - Self-Care Reason For Visit: GASTROPARESIS FLARE Discharge Diagnosis: Gastroparesis flare Activity: Per Instructions section Non-emergency contact: Primary Care Provider Call non-emergency contact if: you have any medication questions and your symptoms worsen Follow-up/Referrals: Daina Brown MD [Primary Care Provider] - 04/24/24 2:25 pm Diet: Regular and Carb Consistent or DM2 Addtl Attending Provider Instructions: You were admitted to the hospital for nausea and vomiting due to a gastroparesis flare. Because you were unable to take in enough food or water for several days, your kidney function was also slightly impaired. Your symptoms improved with Zofran and Reglan, and your kidney injury resolved with IV hydration. A discharge summary will be sent to your primary care physician to ensure continuity of care. Your medication list has been reviewed and reconciled upon discharge to ensure accuracy and an updated list of all your medications is included with your hospital discharge paperwork. Please review this list closely and make note of any changes. Continue your metformin and lisinopril Do not take glipizide anymore Do not take ozempic until your symptoms are gone. Then, take the 1mg dose Make a follow-up appointment with your PCP within the next week. It is very important that you follow up with them shortly after discharge from the hospital. Discuss any adjustments to your medications with her. Contact your PCP if your symptoms worsen or you have questions about your medications. Call 911 or go to the ER if you experience any of the following: Sudden, severe abdominal pain or nausea/vomiting Severe chest pain, or chest pain that radiates (moves) to your jaw or arm Sudden, severe shortness of breath or difficulty breathing Thank you for allowing us to participate in your care. Pending Studies at Discharge: No Stand-Alone Forms: [facility] Easy Pairings, Smoking Cessation Medications and DC Order Prescriptions: New ondansetron 4 mg tablet,disintegrating 4 mg PO TID PRN (Reason: nausea and vomiting) 30 Days Qty: 90 0RF Continued (DME) Dexcom G7 Sensor Device See Rx Instructions .ROUTE .MEDSUPPLY Qty: 1 Rx Instructions: As directed (DME) Dexcom G7 Can Capper [facility] [place] See Rx Instructions .ROUTE .MEDSUPPLY Qty: 1 Rx Instructions: As directed (DME) lancets [OneTouch Delica Plus Lancet] 30 gauge misc See Rx Instructions .ROUTE .MEDSUPPLY Qty: 100 Rx Instructions: As directed (DME) OneTouch Verio test strips Strip See Rx Instructions .ROUTE .MEDSUPPLY Qty: 10 Rx Instructions: As directed (DME) blood-glucose meter [OneTouch Verio Reflect Meter] [facility] [place] See Rx Instructions .ROUTE .MEDSUPPLY Qty: 1 Rx Instructions: As directed metformin 1,000 mg tablet 1,000 mg PO BID diclofenac sodium 75 mg tablet,delayed release (DR/EC) 75 mg PO DAILY PRN (Reason: Pain) ihiwkdytkyhg-Hj-potg-minerals 18-0.4 mg tablet 1 tab PO DAILY vitamin B complex Tablet 1 tab PO DAILY cholecalciferol (vitamin D3) 50 mcg (2,000 unit) capsule 50 mcg PO DAILY omeprazole 40 mg Capsule,Delayed Release(Dr/Ec) 40 mg PO QAM etonogestrel-ethinyl estradiol [EluRyng] 0.12-0.015 mg/24 hr ring 1 vag ring VAGINAL UD metoclopramide HCl 5 mg/5 mL solution 5 mg PO BID clobetasol 0.05 % ointment 1 applic TOPICAL BID clobetasol 0.05 % solution 1 applic TOPICAL BID lisinopril 2.5 mg tablet 2.5 mg PO QAM rosuvastatin 5 mg tablet 5 mg PO UD Rx Instructions: per pt, medication is currently on hold lubiprostone [Amitiza] 24 mcg capsule 24 mcg PO BID Changed Ozempic 2 mg/dose (8 mg/3 mL) pen injector 1 mg SUBCUT WK Qty: 0 0RF Discharge Orders: Discharge Order (Routine); Ordered 04/17/24 Ordered By: Neena Dumont/Other Patient Handouts: Gastroparesis Admission Data Admit Date/Time: 04/16/24 18:19 Attending Provider: Tl Payan Admit Provider: Jake Patricia Primary Care Provider: Daina Brown Other Providers: Jake Patricia Other Interventions: Discharge Summary Assessment (RN) Last Done: 04/17/24 16:43 Supervising Physician Co-Signing Physician Notes Attending attestation Pt seen and examined in concert with Dr. Prather. In agreement with the documented findings as noted in the resident documentation with any exceptions or additions as noted here. Reports nausea well controlled on present medication though with ongoing diminished appetite, tolerating diet and liquid intake at present. Would like to go home. On examination, S1/S2 nl RRR no MCG. CTAB. Abd NT/ND BS+ve Intractable nausea & vomiting - improved on administration of metoclopramide and ondansetron - will discharge on 8mg SL dissolvable ondansetron and can add metaclopramide q8h PRN for breakthrough if needed. Type 2 diabetes, well controlled with adverse effect as noted - reviewed regimen and last A1c ~5.4% in the outpatient. Recommend continue metformin, do not restart glipizde, downtitrate semaglutide to 1mg tolerated dose and only restart with resolution of symptoms without medication as above. Acute kidney injury - resolved following IV fluids. Education provided on the the nephrologic impact of DMII and relation to pre-renal azotemia. Else see resident documentation as noted. Total attending physician time spent with this patient's care on the day of discharge: 40 minutes. Resident Activity Tracking Resident Involvement: Resident Care Provided Care Provided: Adult Hospital Medicine
== END 2024-04-17 16:43 | disposition home or self-care (01) | DRG 74 ==
LOC: ED 13:57 → SUATTDRO 18:19 → 3W 18:19